=== PATIENT | male | born 1955 | race African-American/Black ===

== ENCOUNTER 2016-08-15 06:52 | Emergency (ER) | payer OTHER ==
[2016-08-15] MEDS ORDERED: ACETAMINOPHEN 325 MG TABLET PO ONE (07:44)
--- NOTE | 2016-08-15 07:44 | ER Document Report ---
ED General - General Chief Complaint: Blood Pressure Problem Stated Complaint: BLOOD PRESSURE PROBLEMS Time Seen by Provider: 08/15/16 07:19 Mode of Arrival: Ambulatory Information source: Patient Notes: 61-year-old male presents with complaints of headache of 2 day duration. Patient notes is a very mild headache but he is very anxious about his blood pressure. Patient notes his blood pressure has been 140s over 90s. Denies any fevers or chills denies any neurological symptoms denies any trauma Patient has not taken any medications for his headache TRAVEL OUTSIDE OF THE [place] IN LAST 30 DAYS: No - HPI Onset: Other - 2 day duration Onset/Duration: Persistent Quality of pain: Achy Severity: Mild Pain Level: 1 Associated symptoms: Headache Exacerbated by: Denies Relieved by: Denies Similar symptoms previously: No Recently seen / treated by doctor: No - Related Data Allergies/Adverse Reactions: No Known Allergies Allergy (Verified 08/15/16 07:44) Past Medical History - Social History Smoking Status: Never Smoker Cigarette use (# per day): No Chew tobacco use (# tins/day): No Smoking Education Provided: No Family History: Reviewed & Not Pertinent Patient has suicidal ideation: No Patient has homicidal ideation: No - Past Medical History Cardiac Medical History: Denies: Hx Coronary Artery Disease, Hx Heart Attack, Hx Hypertension Pulmonary Medical History: Denies: Hx Asthma, Hx Bronchitis, Hx COPD, Hx Pneumonia, Hx Tuberculosis Neurological Medical History: Denies: Hx Cerebrovascular Accident, Hx Seizures Renal/ Medical History: Denies: Hx Peritoneal Dialysis Musculoskeltal Medical History: Reports Hx Arthritis Past Surgical History: Reports: Hx Orthopedic Surgery - right leg. Denies: Hx Pacemaker - Immunizations Hx Diphtheria, Pertussis, Tetanus Vaccination: Yes Review of Systems - Review of Systems Notes: PHYSICAL EXAMINATION: GENERAL: Well-appearing, well-nourished and in no acute distress. HEAD: Atraumatic, normocephalic. EYES: Pupils equal round and reactive to light, extraocular movements intact, sclera anicteric, conjunctiva are normal. ENT: Nares patent, oropharynx clear without exudates. Moist mucous membranes. NECK: Normal range of motion, supple without lymphadenopathy LUNGS: Breath sounds clear to auscultation bilaterally and equal. No wheezes rales or rhonchi. HEART: Regular rate and rhythm without murmurs ABDOMEN: Soft, nontender, nondistended abdomen. No guarding, no rebound. No masses appreciated. Musculoskeletal: Normal range of motion, no pitting or edema. No cyanosis. NEUROLOGICAL: Cranial nerves grossly intact. Normal speech, normal gait. Normal sensory, motor exams PSYCH: Normal mood, normal affect. SKIN: Warm, Dry, normal turgor, no rashes or lesions noted. Physical Exam - Vital signs Vitals: Temp Pulse Resp BP Pulse Ox 97.3 F 71 16 129/91 H 98 08/15/16 07:02 08/15/16 07:02 08/15/16 07:02 08/15/16 07:02 08/15/16 07:02 Course - Re-evaluation Re-evalutation: 08/15/16 09:10 Patient was given Tylenol which resolved his headache CT of the head was negative. No life-threatening issues are noted. I will discharge the patient follow-up with primary care physician regarding his blood pressure issues at this time his blood pressure is stable After performing a Medical Screening Examination, I estimate there is LOW risk for ACUTE GLAUCOMA, TEMPORAL ARTERITIS, MENINGITIS, INCRANIAL HEMORRHAGE, or ISCHEMIC STROKE thus I consider the discharge disposition reasonable. I have reevaluated this patient multiple times and no significant life threatening changes are noted. The patient and I have discussed the diagnosis and risks, and we agree with discharging home with close follow-up with the understanding that symptoms and presentations can change. We also discussed returning to the Emergency Department immediately if new or worsening symptoms occur. We have discussed the symptoms which are most concerning (e.g., changing or worsening symptoms, new numbness or weakness, vomiting, fever) that necessitate immediate return. - Vital Signs Vital signs: Temp Pulse Resp BP Pulse Ox 97.3 F 71 16 129/91 H 98 08/15/16 07:02 08/15/16 07:02 08/15/16 07:02 08/15/16 07:02 08/15/16 07:02 - Diagnostic Test Radiology reviewed: Image reviewed, Reports reviewed - No acute abnormality Discharge - Discharge Clinical Impression: Headache Qualifiers: Headache type: unspecified Headache chronicity pattern: acute headache Intractability: not intractable Qualified Code(s): R51 - Headache Hypertension Qualifiers: Hypertension type: essential hypertension Qualified Code(s): I10 - Essential ( primary) hypertension Condition: Stable Disposition: HOME, SELF-CARE Instructions: Headache ([facility]) Referrals: ROMULO LOZADA MD [Primary Care Provider] - Follow up tomorrow
[2016-08-15] MEDS ORDERED: IBUPROFEN 800 MG TABLET PO ONE (09:23)
[2016-08-15 09:37] VITALS: BP 116/85
== END 2016-08-15 09:34 | disposition home or self-care (01) ==
LOC: ER 06:52
DX: R51 Headache (principal); I10 Essential (primary) hypertension
CPT/HCPCS: 70450; 99284

== ENCOUNTER 2016-11-04 23:42 | Inpatient (IN) | payer OTHER ==
[2016-11-05] MEDS ORDERED: ONDANSETRON 4 MG TAB.RAPDIS PO ONE (00:52)
[2016-11-05] MEDS ORDERED: OXYCODONE-ACETAMINOPHEN 5-325 MG TABLET PO ONE (00:52)
--- NOTE | 2016-11-05 00:55 | ER Document Report ---
ED Medical Screen (RME) - General Chief Complaint: Abdominal Pain Stated Complaint: ABDOMINAL/BACK PAIN Time Seen by Provider: 11/05/16 00:49 Notes: 61-year-old male, chief complaint of abdominal pain in both upper and lower abdomen, started yesterday getting worse, reports nausea now. He denies flank pain, vomiting, fever; had normal bowel movement yesterday. He denies any surgeries or daily medications. He reports recent colonoscopy with diverticulosis but no other concerning findings. TRAVEL OUTSIDE OF THE [place] IN LAST 30 DAYS: No - Related Data Allergies/Adverse Reactions: No Known Allergies Allergy (Verified 11/05/16 00:18) Past Medical History - Past Medical History Cardiac Medical History: Denies: Hx Coronary Artery Disease, Hx Heart Attack, Hx Hypertension Pulmonary Medical History: Denies: Hx Asthma, Hx Bronchitis, Hx COPD, Hx Pneumonia, Hx Tuberculosis Neurological Medical History: Denies: Hx Cerebrovascular Accident, Hx Seizures Renal/ Medical History: Denies: Hx Peritoneal Dialysis Musculoskeltal Medical History: Reports Hx Arthritis Past Surgical History: Reports: Hx Orthopedic Surgery - right leg. Denies: Hx Pacemaker - Immunizations Hx Diphtheria, Pertussis, Tetanus Vaccination: Yes Physical Exam - Vital signs Vitals: Temp Pulse Resp BP Pulse Ox 98.6 F 93 16 170/106 H 100 11/05/16 00:20 11/05/16 00:20 11/05/16 00:20 11/05/16 00:20 11/05/16 00:20 - General General appearance: Other - appears to be uncomfortable and has trouble holding still - Abdominal Tenderness: Tender - tender in both upper and lower abdomen with some wincing; limited by sitting Course - Re-evaluation Re-evalutation: patient requests pain medication in triage along with the nausea medication - Vital Signs Vital signs: Temp Pulse Resp BP Pulse Ox 98.6 F 93 16 170/106 H 100 11/05/16 00:20 11/05/16 00:20 11/05/16 00:20 11/05/16 00:20 11/05/16 00:20
[2016-11-05] MEDS ORDERED: MORPHINE SULFATE 10 MG/ML INJ IV ONE (02:15)
[2016-11-05 02:24] LABS: AMORPHOUS SEDIMENT,URINE TRACE /HPF; APPEARANCE,URINE CLOUDY; BILIRUBIN,URINE NEGATIVE (NEGATIVE); GLUCOSE, URINE NEGATIVE (NEGATIVE); KETONES,URINE NEGATIVE (NEGATIVE); LEUKOCYTE ESTERASE,URINE NEGATIVE (NEGATIVE); NITRITE,URINE NEGATIVE (NEGATIVE); PROTEIN,URINE NEGATIVE (NEGATIVE); URINE SPECIFIC GRAVITY 1.019
[2016-11-05] MEDS ORDERED: NORMAL SALINE 1000 ML 1,000 ML IV ONE (02:41)
[2016-11-05 02:52] LABS: ABSOLUTE BASOPHILS # (AUTO) 0.1 10^3/uL (0.0-0.2); ABSOLUTE EOSINOPHILS # (AUTO) 0.2 10^3/uL (0.0-0.6); ABSOLUTE LYMPHOCYTES (AUTO) 2.6 10^3/uL (0.5-4.7); ABSOLUTE NEUT (AUTO) 5.1 10^3/uL (1.7-8.2); BASOPHILS % (AUTO) 1.4 % (0-2); EOSINOPHILS % (AUTO) 2.4 % (0-6); HEMATOCRIT 42.6 % (37.9-51.0); HEMOGLOBIN 14.9 g/dL (13.5-17.0); HGB HCT DIFFERENCE 2.1; LYMPHOCYTES % (AUTO) 28.4 % (13-45); MEAN CORPUSCULAR HEMOGLOBIN 29.7 pg (27.0-33.4); MEAN CORPUSCULAR HGB CONC 34.9 g/dL (32.0-36.0); MEAN CORPUSCULAR VOLUME 85 fl (80-97); MONOCYTES % (AUTO) 10.7 % (3-13); RED BLOOD COUNT 5.01 10^6/uL (4.35-5.55); RED CELL DISTRIBUTION WIDTH 14.7 % (11.5-14.0); SEGMENTED NEUTROPHILS % (AUTO) 57.1 % (42-78)
--- NOTE | 2016-11-05 03:44 | RADIOLOGY REPORT (SQ) ---
EXAM DESCRIPTION: ACUTE ABDOMEN SERIES COMPLETED DATE/TIME: 11/05/2016 3:09 am REASON FOR STUDY: abd pain, nausea COMPARISON: Chest x-ray 04/29/2015. NUMBER OF VIEWS: Three views. TECHNIQUE: Frontal chest, supine abdomen and upright/decubitus abdomen radiographic images acquired. LIMITATIONS: None. FINDINGS: CHEST: No consolidation, pleural effusion or pneumothorax. FREE AIR: None. BOWEL GAS PATTERN: Nonobstructive pattern. No dilated loops or air fluid levels. CALCIFICATIONS: No suspicious calcifications. HARDWARE: None in the abdomen. SOFT TISSUES: No gross mass or suggestion of organomegaly. BONES: Degenerative changes in the spine. IMPRESSION: Nonobstructive bowel gas pattern. No acute radiographic finding in the chest. TECHNICAL DOCUMENTATION: JOB ID: [id number] 2010 [employer]- All Rights Reserved
[2016-11-05 04:09] LABS: ALANINE AMINOTRANSFERASE 26 U/L (21-72); ALBUMIN 3.6 g/dL (3.5-5.0); ALKALINE PHOSPHATASE 104 U/L (38-126); ANION GAP 9 (5-19); ASPARTATE AMINO TRANSFERASE 16 U/L (17-59); BILIRUBIN,DIRECT 0.2 mg/dL (0.0-0.4); BILIRUBIN,TOTAL 0.4 mg/dL (0.2-1.3); BLOOD UREA NITROGEN 10 mg/dL (7-20); CALCIUM 8.8 mg/dL (8.4-10.2); CARBON DIOXIDE 26 mmol/L (22-30); CHLORIDE 107 mmol/L (98-107); CREATININE RESULT 0.85 mg/dL (0.52-1.25); GLUCOSE 139 mg/dL (75-110); SODIUM 142.1 mmol/L (137-145); TOTAL PROTEIN 6.6 g/dL (6.3-8.2)
[2016-11-05 04:32] LABS: LIPASE 7009.9 U/L (23-300)
--- NOTE | 2016-11-05 04:48 | ER Document Report ---
ED GI/ - General Chief Complaint: Abdominal Pain Stated Complaint: ABDOMINAL/BACK PAIN Time Seen by Provider: 11/05/16 00:49 Notes: Patient is a 61-year-old male, chief complaint of abdominal pain in both upper and mid abdomen, started yesterday getting worse, reports nausea now. He denies flank pain, vomiting, fever; had normal bowel movement yesterday. He denies any surgeries or daily medications. He reports recent colonoscopy with diverticulosis but no other concerning findings. He smokes, denies COPD. PMH of Hepatitis C which as treated and his viral load is undetectable. TRAVEL OUTSIDE OF THE [place] IN LAST 30 DAYS: No - Related Data Allergies/Adverse Reactions: No Known Allergies Allergy (Verified 11/05/16 00:18) Home Medications: Current Home Medications No Home Medications 11/05/16 [History] Past Medical History - General Information source: Patient - Social History Smoking Status: Current Every Day Smoker Frequency of alcohol use: Social Drug Abuse: None Lives with: Family Family History: Reviewed & Not Pertinent - Past Medical History Cardiac Medical History: Denies: Hx Coronary Artery Disease, Hx Heart Attack, Hx Hypertension Pulmonary Medical History: Denies: Hx Asthma, Hx Bronchitis, Hx COPD, Hx Pneumonia, Hx Tuberculosis Neurological Medical History: Denies: Hx Cerebrovascular Accident, Hx Seizures Renal/ Medical History: Denies: Hx Peritoneal Dialysis Musculoskeltal Medical History: Reports Hx Arthritis Past Surgical History: Reports: Hx Orthopedic Surgery - right leg. Denies: Hx Pacemaker - Immunizations Hx Diphtheria, Pertussis, Tetanus Vaccination: Yes Review of Systems - Review of Systems Constitutional: No symptoms reported EENT: No symptoms reported Cardiovascular: No symptoms reported Respiratory: No symptoms reported Gastrointestinal: See HPI Genitourinary: No symptoms reported Male Genitourinary: No symptoms reported Musculoskeletal: No symptoms reported Skin: No symptoms reported Hematologic/Lymphatic: No symptoms reported Neurological/Psychological: No symptoms reported Physical Exam - Vital signs Vitals: Temp Pulse Resp BP Pulse Ox 98.6 F 93 16 170/106 H 100 11/05/16 00:20 11/05/16 00:20 11/05/16 00:20 11/05/16 00:20 11/05/16 00:20 Interpretation: Normal - General General appearance: Appears well, Alert - HEENT Head: Normocephalic, Atraumatic Eyes: Normal Pupils: PERRL - Respiratory Respiratory status: No respiratory distress Chest status: Nontender Breath sounds: Normal Chest palpation: Normal - Cardiovascular Rhythm: Regular Heart sounds: Normal auscultation Murmur: No - Abdominal Inspection: Other - On inspection with patient lying down patient appears to have a umbilical hernia Distension: No distension Bowel sounds: Normal Tenderness: Tender - Patient tender in the epigastric area and also in the area of the umbilical hernia. Umbilical hernia is still soft, I was able to reduce without any difficulty Organomegaly: No organomegaly - Back Back: Normal, Nontender. No: Tender, CVA tenderness - Extremities General upper extremity: Normal inspection, Nontender, Normal ROM, Normal strength General lower extremity: Normal inspection, Nontender, Normal ROM, Normal strength - Neurological Neuro grossly intact: Yes Cognition: Normal Orientation: AAOx4 [employer] Coma Scale Eye Opening: Spontaneous Alexander Coma Scale Verbal: Oriented Alexander Coma Scale Motor: Obeys Commands Alexander Coma Scale Total: 15 Speech: Normal Motor strength normal: LUE, RUE, LLE, RLE Sensory: Normal - Psychological Associated symptoms: Normal affect, Normal mood - Skin Skin Temperature: Warm Skin Moisture: Dry Skin Color: Normal Course - Re-evaluation Re-evalutation: Despite reducing the umbilical hernia easily on exam patient appears to still be in some pain. The area is not hard. It comes back out but it is repeatedly easy to reduce. He still has some mid to upper abdominal pain on exam. CBC, chemistry unremarkable, lactic acid unremarkable, however his lipase is significantly elevated. No obstructive findings. Patient admits that he drinks alcohol on a regular basis including occasionally heavily. Likely alcoholic pancreatitis with no evidence of obstructive findings on chemistry. Patient does feel better after pain medication but still has some pain. IV fluids given. Discussed with Dr. Clarke. Because of lack of obstructive findings on chemistry and a reducible hernia she does not recommend any imaging including ultrasound or CAT scan. Recommends admission from this point. Discussed with Dr. Mao, patient's primary provider, patient will be admitted to telemetry. Patient states agreement with this plan. - Vital Signs Vital signs: Temp Pulse Resp BP Pulse Ox 98.6 F 93 16 170/106 H 100 11/05/16 00:20 11/05/16 00:20 11/05/16 00:20 11/05/16 00:20 11/05/16 00:20 - Laboratory Result Diagrams: 11/05/16 02:41 11/05/16 03:38 Laboratory results interpreted by me: 11/05/16 11/05/16 11/05/16 02:04 02:41 03:38 RDW 14.7 H Plt Count 149 L Glucose 139 H AST 16 L Lipase 7009.9 H Urine Urobilinogen 4.0 H Discharge - Discharge Clinical Impression: Abdominal pain Qualifiers: Abdominal location: generalized Qualified Code(s): R10.84 - Generalized abdominal pain Pancreatitis Qualifiers: Chronicity: acute Pancreatitis type: unspecified pancreatitis type Acute pancreatitis complication: unspecified Qualified Code(s): K85.90 - Acute pancreatitis without necrosis or infection, unspecified Umbilical hernia Qualifiers: Obstruction and gangrene presence: without obstruction or gangrene Qualified Code(s): K42.9 - Umbilical hernia without obstruction or gangrene Disposition: ADMITTED INPATIENT Admitting Provider: [facility] Admitted: Telemetry
[2016-11-05] MEDS ORDERED: GLUCAGON,HUMAN RECOMB 1 MG INJ SUBCUT PRN (05:44)
[2016-11-05] MEDS ORDERED: DEXTROSE 50%-WATER 25 GM/50 ML DISP.SYRIN IV PRN ×2 (05:44)
[2016-11-05] MEDS ORDERED: POTASSI CL 10 MEQ/D5-1/2NS 1L 1,000 ML IV PRN (05:44)
[2016-11-05] MEDS ORDERED: DEXTROSE 40% GEL 15 GM TUBE PO PRN ×2 (05:44)
[2016-11-05 06:57] LABS: PROTHROMBIN TIME 13.8 SEC (11.4-15.4)
[2016-11-05 06:58] LABS: PARTIAL THROMBOPLASTIN TIME 36.9 SEC (23.5-35.8)
[2016-11-05 07:03] LABS: URINE BARBITURATES SCREEN NEGATIVE; URINE METHADONE SCREEN NEGATIVE; URINE OPIATES LOW NEGATIVE; URINE PHENCYCLIDINE SCREEN NEGATIVE
[2016-11-05 07:10] LABS: MAGNESIUM 1.8 mg/dL (1.6-2.3); PHOSPHORUS 4.2 mg/dL (2.5-4.5)
[2016-11-05 07:17] LABS: LIPASE 3695.2 U/L (23-300)
--- NOTE | 2016-11-05 07:24 | RADIOLOGY REPORT (SQ) ---
EXAM DESCRIPTION: U/S ABDOMEN COMPLETE W/O DOP COMPLETED DATE/TIME: 11/05/2016 7:01 am REASON FOR STUDY: acute pancreatitis , elevated lipase level. COMPARISON: None. TECHNIQUE: Grayscale images acquired of the abdomen and recorded on PACS. Additional selected color Doppler and spectral images recorded. LIMITATIONS: Study limited due to acoustical interference from fat or from air in the bowel. FINDINGS: PANCREAS: Mostly obscured by overlying bowel gas. The visualized pancreas in the region o f the proximal body is unremarkable. LIVER: The liver measures 14.5 cm. Echotexture is coarse with increased echogenicity most consistent with fatty infiltration. LIVER VASCULATURE: Normal directional flow of the main portal vein. GALLBLADDER: No stones. Normal wall thickness. No pericholecystic fluid. ULTRASOUND-DETECTED MCKINNON'S SIGN: Negative. INTRAHEPATIC DUCTS AND COMMON DUCT: Common hepatic duct measures 9 mm. CBD measures 6 mm. INFERIOR VENA CAVA: Patent. AORTA: No aneurysm in the visualized segments. RIGHT KIDNEY: Measures 12.6 cm. Normal echogenicity. No hydronephrosis. LEFT KIDNEY: Measures 15 cm. Normal echogenicity. No hydronephrosis. SPLEEN:Measures 10 cm. PERITONEAL AND PLEURAL SPACES: No ascites or effusions. IMPRESSION: Fatty infiltration of the liver. Mildly dilated common hepatic duct. No cholelithiasis. Suboptimal visualization of the pancreas. Please note that CT and MRI/ MRCP are more sensitive to ev aluate for peripancreatic inflammatory changes or fluid collections. TECHNICAL DOCUMENTATION: JOB ID: [id number] [place]-[id number] 2010 [employer]- All Rights Reserved
[2016-11-05 07:25] LABS: TROPONIN I < 0.012 ng/mL
[2016-11-05 07:41] LABS: THYROID STIMULATING HORMONE 2.53 uIU/mL (0.47-4.68)
[2016-11-05 07:48] LABS: CREATINE KINASE MB 0.94 ng/mL (<4.55)
[2016-11-05] MEDS: ENOXAPARIN SODIUM INJ 40 MG/0.4 ML DISP.SYRIN SUBCUT SCH (09:45)
[2016-11-05] MEDS: HYDROMORPHONE HCL INJ/PF 2 MG/ML AMPULE IV PRN (09:47)
[2016-11-05 11:22] LABS: CHOLESTEROL 150.49 mg/dL (0-200); Direct HDL 48 mg/dL (>40); TRIGLYCERIDES 72 mg/dL (<150)
[2016-11-05 11:33] LABS: DIRECT LDL 85 mg/dL (<100)
--- NOTE | 2016-11-05 11:59 | RADIOLOGY REPORT (SQ) ---
EXAM DESCRIPTION: CT ABD/PELVIS WITH IV ONLY COMPLETED DATE/TIME: 11/05/2016 11:45 am REASON FOR STUDY: abdominal pain COMPARISON: None. TECHNIQUE: CT scan of the abdomen and pelvis performed using helical scanning technique with dynamic intravenous contrast injection. No oral contrast. Images reviewed with lung, soft tissue, and bone windows. Reconstructed coronal and sagittal MPR images reviewed. Delayed images for evaluation of the urinary system also acquired. All images stored on PACS. All CT scanners at this facility use dose modulation, iterative reconstruction, and/or weight based d osing when appropriate to reduce radiation dose to as low as reasonably achievable (ALARA). [facility]: Dose Right [facility]: CareDose [facility]: Dose Right [facility]: Teradose 4D [facility]: Akella CONTRAST TYPE AND DOSE: contrast/concentration: Isovue 370.00 mg/ml; Total Contrast Delivered: 100.0 ml; Total Saline Delivered: 72.0 ml RENAL FUNCTION: BUN 10 creatinine 0.85. RADIATION DOSE: Up-to-date CT equipment and radiation dose reduction techniques were employed. CTDIv ol: 14.7 - 18.4 mGy. DLP: 1815 mGy-cm.. LIMITATIONS: None. FINDINGS: LOWER CHEST: No significant findings. No nodules or infiltrates. LIVER: Normal size. No masses. No dilated ducts. SPLEEN: Normal size. No focal lesions. PANCREAS: No masses. No significant calcifications. No adjacent inflammation or peripancreatic fluid collections. Pancreatic duct not dilated. GALLBLADDER: No identified stones by CT criteria. No inflammatory changes to suggest cholecystitis. ADRENAL GLANDS: No significant masses or asymmetry. RIGHT KIDNEY AND URETER: Cortical cyst in the anterior cortex. 1.8 cm cortical mass in the lateral l ower pole, not clearly cystic. Hounsfield units 60-70. No significant calcifications. No hydrone phrosis or hydroureter. LEFT KIDNEY AND URETER: No solid masses. No significant calcifications. No hydronephrosis or hydr oureter. AORTA AND VESSELS: No aneurysm. No dissection. Renal arteries, SMA, celiac without stenosis. RETROPERITONEUM: No retroperitoneal adenopathy, hemorrhage or masses. BOWEL AND PERITONEAL CAVITY: No masses or inflammatory changes. No free fluid or peritoneal masses. APPENDIX: Normal. PELVIS: No mass. No free fluid. Normal bladder. Left inguinal hernia containing fat. ABDOMINAL WALL: No masses. No hernias. BONES: No significant or acute findings. OTHER: No other significant finding. IMPRESSION: 1. LESION IN THE LOWER POLE OF THE RIGHT KIDNEY WHICH IS NOT CLEARLY A SIMPLE CORTICAL CYST. RECOMME ND FOLLOW-UP ULTRASOUND OF THE KIDNEYS. IF ULTRASOUND IS NONSPECIFIC, THEN MRI MAY BE INDICATED. 2. NO OTHER SIGNIFICANT OR ACUTE FINDING IN THE ABDOMEN OR PELVIS ON CT SCAN WITH IV CONTRAST. TECHNICAL DOCUMENTATION: JOB ID: [id number] Quality ID # [id number]: Final reports with documentation of one or more dose reduction techniques (e.g., Au tomated exposure control, adjustment of the mA and/or kV according to patient size, use of iterative reconstruction technique) 2010 [employer]- All Rights Reserved
[2016-11-05 12:56] LABS: CREATINE KINASE MB 0.96 ng/mL (<4.55)
[2016-11-05 12:57] LABS: TROPONIN I < 0.012 ng/mL
--- NOTE | 2016-11-05 14:54 | PDOC H&P ---
History of Present Illness Admission Date/PCP: 11/05/16 05:44 ROMULO LOZADA MD History of Present Illness: ALBERT MONGE is a 61 year old male, He came to the emergency room earlier this morning for evaluation of abdominal pain. In the emergency room he was evaluated he was found to have severely elevated serum lipase over 7000 this suggests he has acute pancreatitis. The pain is in the upper abdomen, it radiated to the back. I ordered a CT scan of the abdomen and pelvis with IV contrast, CT scan did not show any acute pathology but there was incidental finding of a 1.8 cm lesion in the right kidney cortex is not well characterized as a cyst further imaging studies recommended. The ultrasound of the goal bladder was negative for gallstones,He does not habitually consume alcoholic beverages Past Medical History Neurological Medical History: Denies: Seizures Musculoskeltal Medical History: Reports: Arthritis Past Surgical History Past Surgical History: Reports: Orthopedic Surgery - right leg Social History Lives with: Family Smoking Status: Current Every Day Smoker Number of Years Smokin Last Time Smoked: 11/04/16 smokes 3 cigarettes daily Frequency of Alcohol Use: Social Hx Recreational Drug Use: No Drugs: None Hx Prescription Drug Abuse: No - Advance Directive Resuscitation Status: Full Code Family History Family History: Reviewed & Not Pertinent Parental Family History Reviewed: Yes Children Family History Reviewed: Yes Sibling(s) Family History Reviewed.: Yes Medication/Allergy Home Medications: No Home Medications 11/05/16 Allergies/Adverse Reactions: No Known Allergies Allergy (Verified 11/05/16 00:18) Review of Systems Constitutional: ABSENT: chills, fever(s), headache(s), weight gain, weight loss Eyes: ABSENT: visual disturbances Ears: ABSENT: hearing changes Cardiovascular: ABSENT: chest pain, dyspnea on exertion, edema, orthropnea, palpitations Respiratory: ABSENT: cough, hemoptysis Gastrointestinal: PRESENT: abdominal pain Genitourinary: ABSENT: dysuria, hematuria Musculoskeletal: ABSENT: joint swelling Integumentary: ABSENT: rash, wounds Neurological: ABSENT: abnormal gait, abnormal speech, confusion, dizziness, focal weakness, syncope Psychiatric: ABSENT: anxiety, depression, homidical ideation, suicidal ideation Endocrine: ABSENT: cold intolerance, heat intolerance, menstrual abnormalities, polydipsia, polyuria Hematologic/Lymphatic: ABSENT: easy bleeding, easy bruising, lymphadenopathy Physical Exam Vital Signs: Temp Pulse Resp BP Pulse Ox 97.5 F 66 14 122/81 95 11/05/16 12:05 11/05/16 12:05 11/05/16 12:05 11/05/16 12:05 11/05/16 12:05 Intake & Output 11/04/16 11/05/16 11/06/16 06:59 06:59 06:59 Weight 104.3 kg 104.2 kg General appearance: PRESENT: no acute distress, well-developed, well-nourished Head exam: PRESENT: atraumatic, normocephalic Eye exam: PRESENT: conjunctiva pink, EOMI, PERRLA. ABSENT: scleral icterus Ear exam: PRESENT: normal external ear exam Mouth exam: PRESENT: moist, tongue midline Neck exam: PRESENT: full ROM. ABSENT: carotid bruit, JVD, lymphadenopathy, thyromegaly Respiratory exam: PRESENT: clear to auscultation gloria Cardiovascular exam: PRESENT: RRR, +S1, +S2. ABSENT: diastolic murmur, rubs, systolic murmur Pulses: PRESENT: normal dorsalis pedis pul, +2 pedal pulses bilateral Vascular exam: PRESENT: normal capillary refill GI/Abdominal exam: PRESENT: tenderness Rectal exam: PRESENT: deferred Neurological exam: PRESENT: alert, awake, oriented to person, oriented to place , oriented to time, oriented to situation, CN II-XII grossly intact Psychiatric exam: PRESENT: appropriate affect, normal mood Skin exam: PRESENT: dry, intact, warm Results Laboratory Results: 11/05/16 11/05/16 11/05/16 06:22 06:22 06:22 Phosphorus 4.2 Magnesium 1.8 Ammonia 19.5 Triglycerides Cholesterol LDL Cholesterol Direct VLDL Cholesterol HDL Cholesterol Amylase 546 H Lipase 3695.2 H TSH 2.53 Free T4 0.85 11/05/16 06:22 Phosphorus Magnesium Ammonia Triglycerides 72 Cholesterol 150.49 LDL Cholesterol Direct 85 VLDL Cholesterol 14.0 HDL Cholesterol 48 Amylase Lipase TSH Free T4 11/05/16 11/05/16 11/05/16 06:22 06:22 12:10 Creatine Kinase 194 H 174 H CK-MB (CK-2) 0.94 Troponin I < 0.012 NT-Pro-B Natriuret Pep 81 11/05/16 12:10 Creatine Kinase CK-MB (CK-2) 0.96 Troponin I < 0.012 NT-Pro-B Natriuret Pep Impressions: Abdomen Ultrasound 11/05/16 00:00 IMPRESSION: Fatty infiltration of the liver. Mildly dilated common hepatic duct. No cholelithiasis. Suboptimal visualization of the pancreas. Please note that CT and MRI/ MRCP are more sensitive to evaluate for peripancreatic inflammatory changes or fluid collections. Abdomen/Pelvis CT 11/05/16 00:00 IMPRESSION: 1. LESION IN THE LOWER POLE OF THE RIGHT KIDNEY WHICH IS NOT CLEARLY A SIMPLE CORTICAL CYST. RECOMMEND FOLLOW-UP ULTRASOUND OF THE KIDNEYS. IF ULTRASOUND IS NONSPECIFIC, THEN MRI MAY BE INDICATED. 2. NO OTHER SIGNIFICANT OR ACUTE FINDING IN THE ABDOMEN OR PELVIS ON CT SCAN WITH IV CONTRAST. Acute Abdomen Series 11/05/16 00:52 IMPRESSION: Nonobstructive bowel gas pattern. No acute radiographic finding in the chest. Assessment & Plan - Diagnosis (1) Acute pancreatitis Qualifiers: Pancreatitis type: unspecified pancreatitis type Acute pancreatitis complication: no infection or necrosis Qualified Code(s): K85.90 - Acute pancreatitis without necrosis or infection, unspecified Is this a current diagnosis for this admission?: YesPlan: Patient is admitted for the management of acute pancreatitis, He be kept n.p.o. , the ultrasound of the gallbladder was negative for gallstones, he does not drink alcohol habitually, he is a social drinker. He is not on any medication known to cause acute pancreatitis, the serum triglyceride level will be measured
[2016-11-05] MEDS ORDERED: LORAZEPAM INJ 2 MG/1 ML VIAL IV PRN (16:45)
[2016-11-05] MEDS: DEXTROSE 5%-NORMAL SALINE 1,000 ML IV PRN (18:18)
[2016-11-05 19:31] LABS: CREATINE KINASE MB 0.78 ng/mL (<4.55)
[2016-11-05 19:44] LABS: TROPONIN I < 0.012 ng/mL
--- NOTE | 2016-11-06 02:29 | RADIOLOGY REPORT (SQ) ---
EXAM DESCRIPTION: MRI ABDOMEN COMBO COMPLETED DATE/TIME: 11/05/2016 6:10 pm REASON FOR STUDY: mri rt kidney COMPARISON: None. TECHNIQUE: Multiplanar multisequence imaging performed without and with contrast including sagittal, axial and coronal T2, axial T1, axial gradient fat sat T1, axial, sagittal and coronal fat sat T1 po st contrast. CONTRAST TYPE AND DOSE: 20 mL ProHance. The RENAL FUNCTION: GFR > 60. LIMITATIONS: Artifact includes motion artifact. FINDINGS: LIVER: Normal size. No masses. No dilated ducts. CBD normal. SPLEEN: Normal size. No focal lesions. PANCREAS: No masses. No adjacent inflammation or peripancreatic fluid collections. Pancreatic duct no t dilated. GALLBLADDER: No masses. No stones. No gallbladder wall thickening or pericholecystic fluid. ADRENAL GLANDS: No significant masses or asymmetry. RIGHT KIDNEY AND URETER: Indeterminate 1.9 cm lesion with low - heterogeneous T2 signal and enhanceme nt pattern matching renal cortices on limited imaging due to motion artifact. Additional 1.4 cm like ly benign cyst of the upper pole. LEFT KIDNEY AND URETER: Indeterminate 1.9 cm lesion AORTA AND VESSELS: No aneurysm. No dissection. Renal arteries, SMA, celiac without stenosis. RETROPERITONEUM: No retroperitoneal adenopathy, hemorrhage or masses. BOWEL: No visualized masses. No inflammation. No significant dilatation. ABDOMINAL WALL AND PERITONEUM: No hernias. No free fluid. BONES: No acute or significant findings. OTHER: No other significant finding. IMPRESSION: Indeterminate 1.9 cm lesion of the right kidney ; cannot exclude neoplasm. Further caitie acterization with dedicated dynamic, thin collimation (3mm thick) contrast CT of the kidneys recommen ded. TECHNICAL DOCUMENTATION: JOB ID: [id number] [employer]- All Rights Reserved
--- NOTE | 2016-11-06 04:45 | EKG REPORT ---
SEVERITY:- ABNORMAL ECG - ATRIAL FLUTTER, A-RATE 272 VENTRICULAR PREMATURE COMPLEX : Confirmed by: Gabriel Razo MD 06-Nov-2016 04:08:03
[2016-11-06 05:13] LABS: ABSOLUTE BASOPHILS # (AUTO) 0.1 10^3/uL (0.0-0.2); ABSOLUTE EOSINOPHILS # (AUTO) 0.1 10^3/uL (0.0-0.6); ABSOLUTE LYMPHOCYTES (AUTO) 2.3 10^3/uL (0.5-4.7); ABSOLUTE MONOCYTES (AUTO) 0.6 10^3/uL (0.1-1.4); BASOPHILS % (AUTO) 0.9 % (0-2); EOSINOPHILS % (AUTO) 2.2 % (0-6); HEMOGLOBIN 14.6 g/dL (13.5-17.0); HGB HCT DIFFERENCE 2.8; LYMPHOCYTES % (AUTO) 37.6 % (13-45); MEAN CORPUSCULAR HEMOGLOBIN 30.1 pg (27.0-33.4); MEAN CORPUSCULAR HGB CONC 35.7 g/dL (32.0-36.0); MEAN CORPUSCULAR VOLUME 84 fl (80-97); MONOCYTES % (AUTO) 9.3 % (3-13); RED BLOOD COUNT 4.87 10^6/uL (4.35-5.55); RED CELL DISTRIBUTION WIDTH 14.8 % (11.5-14.0); WHITE BLOOD COUNT 6.1 10^3/uL (4.0-10.5)
[2016-11-06 05:36] LABS: ALANINE AMINOTRANSFERASE 26 U/L (21-72); ALBUMIN 3.7 g/dL (3.5-5.0); ALKALINE PHOSPHATASE 99 U/L (38-126); ANION GAP 9 (5-19); ASPARTATE AMINO TRANSFERASE 17 U/L (17-59); BILIRUBIN,DIRECT 0.3 mg/dL (0.0-0.4); BILIRUBIN,TOTAL 0.7 mg/dL (0.2-1.3); BLOOD UREA NITROGEN 8 mg/dL (7-20); CALCIUM 9.1 mg/dL (8.4-10.2); CARBON DIOXIDE 25 mmol/L (22-30); CHLORIDE 105 mmol/L (98-107); CHOLESTEROL 161.99 mg/dL (0-200); CREATININE RESULT 0.82 mg/dL (0.52-1.25); Direct HDL 50 mg/dL (>40); GLUCOSE 95 mg/dL (75-110); POTASSIUM 4.3 mmol/L (3.6-5.0); SODIUM 139.4 mmol/L (137-145); TOTAL PROTEIN 6.8 g/dL (6.3-8.2); TRIGLYCERIDES 58 mg/dL (<150)
[2016-11-06 05:47] LABS: DIRECT LDL 94 mg/dL (<100)
[2016-11-06] MEDS: DEXTROSE 5%-NORMAL SALINE 1,000 ML IV PRN ×2 (07:42→18:18)
[2016-11-06] MEDS: ENOXAPARIN SODIUM INJ 40 MG/0.4 ML DISP.SYRIN SUBCUT SCH (09:40)
--- NOTE | 2016-11-06 09:45 | EKG REPORT ---
SEVERITY:- ABNORMAL ECG - ATRIAL FLUTTER, A-RATE 277 NONSPECIFIC INTRAVENTRICULAR CONDUCTION DELAY PROBABLE LEFT VENTRICULAR HYPERTROPHY : Confirmed by: Shannon Crocker 06-Nov-2016 09:45:19
[2016-11-06] MEDS: HYDROMORPHONE HCL INJ/PF 2 MG/ML AMPULE IV PRN (09:48)
--- NOTE | 2016-11-06 17:46 | XCELERA REPORT ---
[address] [address] Transthoracic Echocardiogram Report Name: ALBERT MONGE Age: 61 yrs Gender: Male : 1955 Patient Status: Inpatient Patient Location: 5\S\534\S\A Study Date: 11/06/2016 01:36 PM Height: 76 in Weight: 231 lb BSA: 2.4 m2 Procedure: A complete two-dimensional transthoracic echocardiogram was performed (2D, M-mode, spectral and color flow Doppler). The study was technically adequate with some images being suboptimal in quality. Reason For Study: A FIB. Flutter Ordering Physician: SHANNON BARBER Performed By: Tea Salazar Interpretation Summary The Ejection Fraction estimate is 45-50% Left ventricular systolic function is mildly reduced. There is moderate concentric left ventricular hypertrophy. The left ventricle is grossly normal size. There is mild global hypokinesis of the left ventricle. The right ventricular systolic function is normal. The right atrium is normal in size The left atrium is mildly dilated. There is no mitral valve stenosis. There is a mild amount of mitral regurgitation There is no aortic valve stenosis There is a trace amount of aortic regurgitation There is a trace or physiologic amount of tricuspid regurgitation Tricuspid regurgitation jet envelope not well defined to measure RV systolic pressure accurately. The aortic root is not well visualized but is probably normal size. The inferior vena cava appeared normal and decreased > 50% with respiration (RAP 5-10 mmHg) There is no pericardial effusion. MMode/2D Measurements \T\ Calculations RVDd: 2.9 cm LVIDd: 5.4 cm FS: 28.7 % Ao root diam: 4.0 cm IVSd: 1.3 cm LVIDs: 3.8 cm EDV(Teich): 141.0 ml LVPWd: 1.3 cm ESV(Teich): 63.8 ml Ao root area: 12.5 cm2 EF(Teich): 54.8 % Doppler Measurements \T\ Calculations MV E max mary: MV dec slope: Ao V2 max: LV V1 max P.4 cm/sec 80.3 cm/sec 1.9 mmHg MV A max mary: 330.7 cm/sec2 Ao max PG: LV V1 max: 36.2 cm/sec MV dec time: 2.6 mmHg 68.1 cm/sec MV E/A: 1.3 0.14 sec PA V2 max: PI end-d mary: TR max mary: 58.8 cm/sec 122.7 cm/sec 177.6 cm/sec PA max PG: TR max P.4 mmHg 12.6 mmHg Left Ventricle The left ventricle is grossly normal size. There is moderate concentric left ventricular hypertrophy. Left ventricular systolic function is mildly reduced. The Ejection Fraction estimate is 45-50%. LV diastolic function could not be adequately assessed due to atrial fibrilation. There is mild global hypokinesis of the left ventricle. Right Ventricle The right ventricle is grossly normal size. There is normal right ventricular wall thickness. The right ventricular systolic function is normal. Atria The right atrium is normal in size. The left atrium is mildly dilated. Interarterial septum not well visualized and not well dopplered. Cannot comment on ASD/PFO presence. Mitral Valve The mitral valve is grossly normal. There is no mitral valve stenosis. There is a mild amount of mitral regurgitation. Aortic Valve The aortic valve is grossly normal. There is no aortic valve stenosis. There is a trace amount of aortic regurgitation. Tricuspid Valve The tricuspid valve is not well visualized, but is grossly normal. There is no tricuspid stenosis. There is a trace or physiologic amount of tricuspid regurgitation. Tricuspid regurgitation jet envelope not well defined to measure RV systolic pressure accurately. Pulmonic Valve The pulmonic valve is not well visualized. Great Vessels The aortic root is not well visualized but is probably normal size. The inferior vena cava appeared normal and decreased > 50% with respiration (RAP 5-10 mmHg). Effusions There is no pericardial effusion. : SHANNON BARBER > Shannon Barber
--- NOTE | 2016-11-06 18:10 | PDOC CONSULTATION ---
Consultation Consult Date: 11/06/16 Attending physician:: ROMULO LOZADA Consult reason:: Atrial flutter History of Present Illness Admission Date/PCP: 11/05/16 05:44 ROMULO LOZADA MD Patient complains of: Pancreatitis and abdominal pain History of Present Illness: ALBERT MONGE is a 61 year old male, admitted through the emergency room. In the emergency room he was evaluated he was found to have severely elevated serum lipase over 7000 this suggests he has acute pancreatitis. Subsequently while being monitored on the floor he was noted to be in atrial flutter but with controlled ventricular response. His last EKG from April 2015 showed sinus rhythm. He does not feel the irregular heartbeat. He denied any prior history of heart problems. Past Medical History Cardiac Medical History: Denies: Coronary Artery Disease, Myocardial Infarction, Hypertension Pulmonary Medical History: Denies: Asthma, Bronchitis, Chronic Obstructive Pulmonary Disease (COPD), Pneumonia, Tuberculosis Neurological Medical History: Denies: Seizures Musculoskeltal Medical History: Reports: Arthritis Past Surgical History Past Surgical History: Reports: Orthopedic Surgery - right leg Denies: Pacemaker Social History Information Source: Patient Lives with: Family Smoking Status: Current Every Day Smoker Number of Years Smokin Last Time Smoked: 11/04/16 smokes 3 cigarettes daily Frequency of Alcohol Use: Social Hx Recreational Drug Use: No Drugs: None Hx Prescription Drug Abuse: No - Advance Directive Resuscitation Status: Full Code Surrogate healthcare decision maker:: Sister Family History Family History: Reviewed & Not Pertinent Parental Family History Reviewed: Yes Children Family History Reviewed: Yes Sibling(s) Family History Reviewed.: Yes - Negative premature CAD in immediate kins. Medication/Allergy Home Medications: Metoprolol Succinate [Toprol Xl 25 mg Tab.sr] 50 mg PO DAILY #90 tab.sr.24h 11/16 Tramadol HCl/Acetaminophen [Ultracet 37.5 mg/325 mg Tablet] 1 each PO Q8H #90 tablet 11/07/16 Allergies/Adverse Reactions: No Known Allergies Allergy (Verified 11/05/16 00:18) Review of Systems Review of Systems: Please see history of present illness and past medical history as wall. Constitutional: No fever or chills reported. Head : No recent chronic headaches, recent head injury. Eyes: No recent eye pain, diplopia, redness, discharge, acute visual changes. Ears: No recent chronic ear pain, acute hearing loss, ear discharge. Oral cavity: No recent ulcerations, bleeding, oral cavity discomfort. Neck: No recent acute neck pain reported. Hematologic: No recent easy bruising or bleeding or hematologic malignancy reported. Lymphatic: No recent lymphatic malignancy, chronic lymphadenopathy reported yet Cardiovascular system review: See history of present illness. Respiratory system review: No recent chronic cough, hemoptysis, blood clots in the lungs reported. Mild Shortness of breath on exertion Gastrointestinal system review: Positive for recent abdominal pain which caused him to be admitted but denied hematemesis, melena, recent change in bowel habits. Genitourinary system review: No recent acute or chronic hematuria, flank pain, UTI etc. reported. Skin system review: Negative for any recent abnormal bruising, no rash, no pruritus reported. Neurologic: No prior history of strokes, mini strokes, seizure disorder. Psychologic: No history of major psychosis or major depression reported. Musculoskeletal: Minor aches and pains reported. No acute joint swelling reported. Endocrine: No recent polyuria, polydipsia, recent heat or cold intolerance. Physical Exam Vital Signs: Temp Pulse Resp BP Pulse Ox 97.5 F 85 18 133/89 H 97 11/06/16 15:29 11/06/16 15:29 11/06/16 15:29 11/06/16 15:29 11/06/16 15:29 Intake & Output 11/05/16 11/06/16 11/07/16 06:59 06:59 06:59 Intake Total 1436 1100 Output Total 800 Balance 636 1100 Weight 104.3 kg 105 kg Exam: GENERAL: well-nourished and in no acute distress. Alert and oriented x3 HEAD: Atraumatic, normocephalic. EYES: Pupils equal round and reactive to light, extraocular movements intact, sclera anicteric, conjunctiva are normal. ENT: TMs normal, nares patent, oropharynx clear without exudates. Moist mucous membranes. No oral ulcerations or bleeding gums noted NECK: supple without lymphadenopathy. Trachea is central. No cervical or axillary lymphadenopathy noted. Carotids are 2+, JVD WNL LUNGS: Respiration seems nonlabored, no significant accessory muscle action noted. Breath sounds clear to auscultation bilaterally and equal noted. No wheezes rales or rhonchi noted. No significant dullness noted on percussion. CHEST: Palpation of the chest wall shows no significant chest wall tenderness. No other significant abnormalities noted. 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 ABDOMEN: Soft, epigastric and mid abdominal tenderness appreciated, normoactive bowel sounds. No guarding, no rebound. No rigidity noted . No masses appreciated. EXTREMITIES: Pedal pulses are 1-2+, no calf tenderness noted. No clubbing or cyanosis.trace to 1+ pedal edema noted NEUROLOGICAL: Focused neurological exam showed no significant neurologic deficit. Normal speech, no focal weakness appreciated. PSYCH: Normal mood, normal affect. Judgment and insight within normal limits. SKIN: No significant ecchymosis, rash, ulcerations or signs of pruritus noted. MUSCULOSKELETAL EXAM: No significant joint swelling noted. Results Laboratory Results: 11/06/16 04:55 11/06/16 04:55 11/06/16 11/06/16 11/06/16 04:55 04:55 04:55 WBC 6.1 RBC 4.87 Hgb 14.6 Hct 41.0 MCV 84 MCH 30.1 MCHC 35.7 RDW 14.8 H Plt Count 150 Seg Neutrophils % 50.0 Lymphocytes % 37.6 Monocytes % 9.3 Eosinophils % 2.2 Basophils % 0.9 Absolute Neutrophils 3.0 Absolute Lymphocytes 2.3 Absolute Monocytes 0.6 Absolute Eosinophils 0.1 Absolute Basophils 0.1 Sodium 139.4 Potassium 4.3 Chloride 105 Carbon Dioxide 25 Anion Gap 9 BUN 8 Creatinine 0.82 Est GFR ( Amer) > 60 Est GFR (Non-Af Amer) > 60 Glucose 95 Calcium 9.1 Total Bilirubin 0.7 AST 17 ALT 26 Alkaline Phosphatase 99 Total Protein 6.8 Albumin 3.7 Triglycerides 58 Cholesterol 161.99 LDL Cholesterol Direct 94 VLDL Cholesterol 12.0 HDL Cholesterol 50 Lipase 457.5 H 11/05/16 11/05/16 11/05/16 06:22 06:22 12:10 Creatine Kinase 194 H 174 H CK-MB (CK-2) 0.94 Troponin I < 0.012 NT-Pro-B Natriuret Pep 81 11/05/16 11/05/16 11/05/16 12:10 18:35 18:35 Creatine Kinase 168 CK-MB (CK-2) 0.96 0.78 Troponin I < 0.012 < 0.012 NT-Pro-B Natriuret Pep EKG Comments: Atrial flutter with controlled ventricular response. No significant ST segment changes are noted. Impressions: Abdomen MRI 11/05/16 00:00 IMPRESSION: Indeterminate 1.9 cm lesion of the right kidney ; cannot exclude neoplasm. Further characterization with dedicated dynamic, thin collimation ( 3mm thick) contrast CT of the kidneys recommended. Abdomen Ultrasound 11/05/16 00:00 IMPRESSION: Fatty infiltration of the liver. Mildly dilated common hepatic duct. No cholelithiasis. Suboptimal visualization of the pancreas. Please note that CT and MRI/ MRCP are more sensitive to evaluate for peripancreatic inflammatory changes or fluid collections. Abdomen/Pelvis CT 11/05/16 00:00 IMPRESSION: 1. LESION IN THE LOWER POLE OF THE RIGHT KIDNEY WHICH IS NOT CLEARLY A SIMPLE CORTICAL CYST. RECOMMEND FOLLOW-UP ULTRASOUND OF THE KIDNEYS. IF ULTRASOUND IS NONSPECIFIC, THEN MRI MAY BE INDICATED. 2. NO OTHER SIGNIFICANT OR ACUTE FINDING IN THE ABDOMEN OR PELVIS ON CT SCAN WITH IV CONTRAST. Acute Abdomen Series 11/05/16 00:52 IMPRESSION: Nonobstructive bowel gas pattern. No acute radiographic finding in the chest. Assessment & Plan - Diagnosis (1) Atrial flutter Qualifiers: Atrial flutter type: typical Qualified Code(s): I48.3 - Typical atrial flutter Is this a current diagnosis for this admission?: Yes (2) Abdominal pain Qualifiers: Abdominal location: generalized Qualified Code(s): R10.84 - Generalized abdominal pain (3) Acute pancreatitis Qualifiers: Pancreatitis type: unspecified pancreatitis type Acute pancreatitis complication: no infection or necrosis Qualified Code(s): K85.90 - Acute pancreatitis without necrosis or infection, unspecified Is this a current diagnosis for this admission?: Yes (4) Tobacco abuse Is this a current diagnosis for this admission?: Yes (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 Rate is well controlled. Consider beta- blockers/rate lowering calcium channel blockers if heart rate is increased. Have ordered a 2D echo. 2D echo shows mildly reduced LVEF but no significant valvular abnormalities noted. LVH is noted. Will start metoprolol succinate for rate control. At this point do not feel patient needs chronic anticoagulation. Patient would however be a good candidate for ablation therapy and once his acute pancreatitis subsides, consider electrophysiological consultation or referral for ablation. Abdominal pain: Most likely related to acute pancreatitis. Acute pancreatitis: Agree with current management plans. Tobacco abuse: patient advised to quit smoking. Kidney mass: noted on CT scan. Further evaluation by PMD - Time Time Spent: 30 to 50 Minutes - More than 50% of the time spent coordinating care , discussing management plans with involved caregivers. Management plans discussed with involved personnels. Medical decision making was of moderate to high complexity, patient's has multiple comorbidities. Dr. Simpson covering from tomorrow. Medications reviewed and adjusted accordingly: Yes
--- NOTE | 2016-11-06 19:13 | RADIOLOGY REPORT (SQ) ---
EXAM DESCRIPTION: CT ABDOMEN COMBO COMPLETED DATE/TIME: 11/06/2016 6:49 pm REASON FOR STUDY: evaluate kidney lesion (3mm Slices per Rad on MRI) COMPARISON: None. TECHNIQUE: CT scan of the abdomen performed with and without intravenous contrast, and without oral contrast. Contrasted imaging performed using helical scanning technique with dynamic intravenous cont rast injection. Images reviewed with lung, soft tissue, and bone windows. Reconstructed coronal and s agittal MPR images reviewed. Delayed images for evaluation of the urinary system also acquired and ev aluated. All images stored on PACS. All CT scanners at this facility use dose modulation, iterative reconstruction, and/or weight based d osing when appropriate to reduce radiation dose to as low as reasonably achievable (ALARA). [facility]: Dose Right [facility]: CareDose [facility]: Dose Right [facility]: Teradose 4D [facility]: If You Can CONTRAST TYPE AND DOSE: contrast/concentration: Isovue 370.00 mg/ml; Total Contrast Delivered: 100.0 ml; Total Saline Delivered: 70.1 ml RENAL FUNCTION: Creatinine 0.8 RADIATION DOSE: Up-to-date CT equipment and radiation dose reduction techniques were employed. CTDIv ol: 17.2 - 17.3 mGy. DLP: 1992 mGy-cm.. LIMITATIONS: None. FINDINGS: NONCONTRASTED IMAGING: No significant renal or bladder calcifications. No other significan t organ calcifications. POSTCONTRASTED IMAGING: LOWER CHEST: No significant findings. No nodules or infiltrates. LIVER: Normal size. No masses. No dilated ducts. SPLEEN: Normal size. No focal lesions. PANCREAS: No masses. No significant calcifications. No adjacent inflammation or peripancreatic fluid collections. Pancreatic duct not dilated. GALLBLADDER: No identified stones by CT criteria. No inflammatory changes to suggest cholecystitis. ADRENAL GLANDS: No significant masses or asymmetry. RIGHT KIDNEY AND URETER: The previously described 1.8 cm in diameter cortical mass in the lateral low er pole of the right kidney measures 32 Hounsfield units on the non contrasted study and increases to 75 Hounsfield units on the delayed imaging. This would suggest a solid rather than cystic mass. . No significant calcifications. No hydronephrosis or hydroureter. LEFT KIDNEY AND URETER: No solid masses. No significant calcifications. No hydronephrosis or hydr oureter. AORTA AND VESSELS: No aneurysm. No dissection. Renal arteries, SMA, celiac without stenosis. RETROPERITONEUM: No retroperitoneal adenopathy, hemorrhage or masses. BOWEL AND PERITONEAL CAVITY: No masses or inflammatory changes. No free fluid or peritoneal masses. APPENDIX: Not identified ABDOMINAL WALL: No masses. No hernias. BONES: No significant or acute findings. OTHER: No other significant finding. IMPRESSION: The previously described indeterminate 1.8 cm in diameter cortical mass in the lateral l ower pole of the right kidney demonstrates contrast enhancement on the images obtained post contrast as noted above which would suggest a solid rather than cystic mass. Other findings as noted above TECHNICAL DOCUMENTATION: JOB ID: [id number] Quality ID # [id number]: Final reports with documentation of one or more dose reduction techniques (e.g., Au tomated exposure control, adjustment of the mA and/or kV according to patient size, use of iterative reconstruction technique) 2010 [employer]- All Rights Reserved
--- NOTE | 2016-11-06 19:33 | PDOC PROGRESS REPORT ---
Subjective Progress Note for:: 11/06/16 Subjective:: Patient was seen by the bedside yesterday it was found to have atrial flutter on awake overnight monitor, a 12-lead EKG was done and it confirm atrial flutter with controlled ventricular rate. Consultation was requested from cardiology, Dr. Crocker, he was seen today by Dr. Crocker, 2D echo was done that suggest mildly reduced ejection fraction of left ventricle. He has typical atrial flutter and he will benefit from ablation therapy. The other issue with this patient was and incidental finding of a mass in the right kidney, MRI of the kidney was done today but it was nonconclusive, CT scan of the kidney, dedicated CT scan of the kidney was done today and it confirmed that it is solid mass suggesting a neoplasm. Patient was admitted for acute pancreatitis he has been n.p.o. since admission the lipase is declined since admission he will be started with clear liquid diet. Physical Exam Vital Signs: Temp Pulse Resp BP Pulse Ox 97.5 F 85 18 133/89 H 97 11/06/16 15:29 11/06/16 15:29 11/06/16 15:29 11/06/16 15:29 11/06/16 15:29 Intake & Output 11/05/16 11/06/16 11/07/16 06:59 06:59 06:59 Intake Total 1436 1340 Output Total 800 400 Balance 636 940 Weight 104.3 kg 105 kg General appearance: PRESENT: no acute distress, well-developed, well-nourished Head exam: PRESENT: atraumatic, normocephalic Eye exam: PRESENT: conjunctiva pink, EOMI, PERRLA Ear exam: PRESENT: normal external ear exam Mouth exam: PRESENT: moist, tongue midline Neck exam: PRESENT: full ROM Respiratory exam: PRESENT: clear to auscultation gloria Cardiovascular exam: PRESENT: RRR, +S1, +S2 Pulses: PRESENT: normal dorsalis pedis pul, +2 pedal pulses bilateral Vascular exam: PRESENT: normal capillary refill GI/Abdominal exam: PRESENT: normal bowel sounds, soft Rectal exam: PRESENT: deferred Neurological exam: PRESENT: alert, awake, oriented to person, oriented to place , oriented to time, oriented to situation, CN II-XII grossly intact Psychiatric exam: PRESENT: appropriate affect, normal mood Skin exam: PRESENT: dry, intact, warm Results Laboratory Results: 11/06/16 04:55 11/06/16 04:55 11/06/16 11/06/16 11/06/16 04:55 04:55 04:55 WBC 6.1 RBC 4.87 Hgb 14.6 Hct 41.0 MCV 84 MCH 30.1 MCHC 35.7 RDW 14.8 H Plt Count 150 Seg Neutrophils % 50.0 Lymphocytes % 37.6 Monocytes % 9.3 Eosinophils % 2.2 Basophils % 0.9 Absolute Neutrophils 3.0 Absolute Lymphocytes 2.3 Absolute Monocytes 0.6 Absolute Eosinophils 0.1 Absolute Basophils 0.1 Sodium 139.4 Potassium 4.3 Chloride 105 Carbon Dioxide 25 Anion Gap 9 BUN 8 Creatinine 0.82 Est GFR ( Amer) > 60 Est GFR (Non-Af Amer) > 60 Glucose 95 Calcium 9.1 Total Bilirubin 0.7 AST 17 ALT 26 Alkaline Phosphatase 99 Total Protein 6.8 Albumin 3.7 Triglycerides 58 Cholesterol 161.99 LDL Cholesterol Direct 94 VLDL Cholesterol 12.0 HDL Cholesterol 50 Lipase 457.5 H 11/05/16 11/05/16 11/05/16 06:22 06:22 12:10 Creatine Kinase 194 H 174 H CK-MB (CK-2) 0.94 Troponin I < 0.012 NT-Pro-B Natriuret Pep 81 11/05/16 11/05/16 11/05/16 12:10 18:35 18:35 Creatine Kinase 168 CK-MB (CK-2) 0.96 0.78 Troponin I < 0.012 < 0.012 NT-Pro-B Natriuret Pep Impressions: Abdomen MRI 11/05/16 00:00 IMPRESSION: Indeterminate 1.9 cm lesion of the right kidney ; cannot exclude neoplasm. Further characterization with dedicated dynamic, thin collimation ( 3mm thick) contrast CT of the kidneys recommended. Abdomen Ultrasound 11/05/16 00:00 IMPRESSION: Fatty infiltration of the liver. Mildly dilated common hepatic duct. No cholelithiasis. Suboptimal visualization of the pancreas. Please note that CT and MRI/ MRCP are more sensitive to evaluate for peripancreatic inflammatory changes or fluid collections. Abdomen/Pelvis CT 11/05/16 00:00 IMPRESSION: 1. LESION IN THE LOWER POLE OF THE RIGHT KIDNEY WHICH IS NOT CLEARLY A SIMPLE CORTICAL CYST. RECOMMEND FOLLOW-UP ULTRASOUND OF THE KIDNEYS. IF ULTRASOUND IS NONSPECIFIC, THEN MRI MAY BE INDICATED. 2. NO OTHER SIGNIFICANT OR ACUTE FINDING IN THE ABDOMEN OR PELVIS ON CT SCAN WITH IV CONTRAST. Acute Abdomen Series 11/05/16 00:52 IMPRESSION: Nonobstructive bowel gas pattern. No acute radiographic finding in the chest. Abdomen CT 11/06/16 00:00 IMPRESSION: The previously described indeterminate 1.8 cm in diameter cortical mass in the lateral lower pole of the right kidney demonstrates contrast enhancement on the images obtained post contrast as noted above which would suggest a solid rather than cystic mass. Other findings as noted above Assessment & Plan - Diagnosis (1) Acute pancreatitis Qualifiers: Pancreatitis type: unspecified pancreatitis type Acute pancreatitis complication: no infection or necrosis Qualified Code(s): K85.90 - Acute pancreatitis without necrosis or infection, unspecified Is this a current diagnosis for this admission?: YesPlan: The lipase is the lipase is 457, he will be started on clear liquid diet he was n.p.o. since admission. (2) Typical atrial flutter Is this a current diagnosis for this admission?: YesPlan: He has typical atrial flutter, he was seen by Dr. 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 cryoablation exit.
[2016-11-07 05:19] LABS: ABSOLUTE EOSINOPHILS # (AUTO) 0.2 10^3/uL (0.0-0.6); ABSOLUTE LYMPHOCYTES (AUTO) 2.4 10^3/uL (0.5-4.7); ABSOLUTE MONOCYTES (AUTO) 0.5 10^3/uL (0.1-1.4); ABSOLUTE NEUT (AUTO) 1.8 10^3/uL (1.7-8.2); EOSINOPHILS % (AUTO) 4.1 % (0-6); HEMATOCRIT 41.7 % (37.9-51.0); HEMOGLOBIN 14.8 g/dL (13.5-17.0); HGB HCT DIFFERENCE 2.7; LYMPHOCYTES % (AUTO) 48.6 % (13-45); MEAN CORPUSCULAR HEMOGLOBIN 29.8 pg (27.0-33.4); MEAN CORPUSCULAR HGB CONC 35.5 g/dL (32.0-36.0); MEAN CORPUSCULAR VOLUME 84 fl (80-97); MONOCYTES % (AUTO) 9.9 % (3-13); RED BLOOD COUNT 4.98 10^6/uL (4.35-5.55); RED CELL DISTRIBUTION WIDTH 14.8 % (11.5-14.0); SEGMENTED NEUTROPHILS % (AUTO) 36.4 % (42-78); WHITE BLOOD COUNT 4.9 10^3/uL (4.0-10.5)
[2016-11-07 05:31] LABS: ALANINE AMINOTRANSFERASE 18 U/L (21-72); ALBUMIN 3.7 g/dL (3.5-5.0); ALKALINE PHOSPHATASE 93 U/L (38-126); ANION GAP 10 (5-19); ASPARTATE AMINO TRANSFERASE 14 U/L (17-59); BILIRUBIN,DIRECT 0.2 mg/dL (0.0-0.4); BILIRUBIN,TOTAL 0.6 mg/dL (0.2-1.3); BLOOD UREA NITROGEN 10 mg/dL (7-20); CALCIUM 8.4 mg/dL (8.4-10.2); CARBON DIOXIDE 23 mmol/L (22-30); CHLORIDE 106 mmol/L (98-107); CREATININE RESULT 0.73 mg/dL (0.52-1.25); GLUCOSE 112 mg/dL (75-110); POTASSIUM 4.2 mmol/L (3.6-5.0); TOTAL PROTEIN 6.7 g/dL (6.3-8.2)
[2016-11-07] MEDS: DEXTROSE 5%-NORMAL SALINE 1,000 ML IV PRN (06:14)
--- NOTE | 2016-11-07 08:33 | EKG REPORT ---
SEVERITY:- ABNORMAL ECG - SINUS RHYTHM ATRIAL PREMATURE COMPLEX LONG R-R WITH VENTRICULAR ESCAPE FIRST DEGREE AV BLOCK LASHAWN, CONSIDER BIATRIAL ABNORMALITIES NONSPECIFIC INTRAVENTRICULAR CONDUCTION DELAY : Confirmed by: Shannon Crocker 07-Nov-2016 08:31:55
[2016-11-07] MEDS ORDERED: METOPROLOL SUCCINATE 25 MG TAB.SR.24H PO SCH (10:00)
[2016-11-07] MEDS: ENOXAPARIN SODIUM INJ 40 MG/0.4 ML DISP.SYRIN SUBCUT SCH (10:24)
--- NOTE | 2016-11-07 12:32 | PROGRESS NOTE E ---
Progress Note NAME: ALBERT MONGE : 1955 AGE: 61Y DATE: 11/07/2016 ROOM: 534 SUBJECTIVE: Note that the patient was seen at 8:15 a.m. The patient continues to be in atrial flutter with a controlled ventricular response. He also continues to have intermittent abdominal pain lasting for a few minutes but he says it is of less intensity than before. His lipase is coming down. He denies any chest pain or discomfort. There is no shortness of breath. There is no PND or orthopnea. There is nausea, vomiting, or diarrhea. His monitor strips were reviewed and it shows atrial flutter with controlled ventricular response. His medications have been reviewed. OBJECTIVE: GENERAL: On examination the patient is well built and well nourished, in no acute distress. VITAL SIGNS: He is afebrile with a temperature of 97.9 degrees Fahrenheit. His pulse is 74 beats per minute. Blood pressure is 121/74. Respirations are 17 per minute. O2 sats are 100% on room air. HEENT: Head is atraumatic, normocephalic. Eyes: Pupils are equal, round, regular, reactive to light and accommodation. Extraocular movements are normal. There is no conjunctival pallor. There is no scleral icterus. Ears: Tympanic membranes are intact. Extraocular canals are clear. The rest of the ENT is negative. NECK: Supple. There is no JVD. Carotids are equal. There is no bruit. There are no masses. There is no goiter. Trachea is central. LUNGS: Clear to auscultation and percussion. HEART: S1, S2 are heard. There is no S4 gallop. There is no S3 gallop. There is a systolic murmur in the left sternal border and the apex. There is no rub. ABDOMEN: Soft, but has some mild diffuse tenderness. Bowel sounds are well heard. There is no rebound, guarding, or rigidity. EXTREMITIES: Femorals are slightly diminished. There is no femoral bruit. Leg pulses are slightly pulses. There is no pedal edema. There is no DVT or cellulitis. There is no calf tenderness. CENTRAL NERVOUS SYSTEM: The patient is conscious, awake, alert, oriented x3. With no focal deficit. DIAGNOSTICS: The patient's EKG shows typical flutter with a controlled ventricular response. The patient's 24-hour intake is 3130 mL. Output is 400 mL. I am not sure if this accurate. The patient's white count is 4900, hemoglobin is 14.8, hematocrit is 41.7, platelet count is 159,000. The patient's sodium is 139, potassium 4.2, chloride of 106, CO2 is 23. The patient's BUN is 10, creatinine is 0.73, GFR is greater than 60. His glucose is 112. His calcium is 8.4. His liver function tests are normal except for a low AST and low ALT of 14 and 18 respectively. His alk phos is 93. The patient's lipase came down to 457.5. The patient's total protein is 6.7. Albumin is 3.7. IMPRESSION: 1. ACUTE PANCREATITIS. 2. HYPERLIPASEMIA, ELEVATED LIPASE LEVEL. 3. TYPICAL ATRIAL FLUTTER WITH CONTROLLED VENTRICULAR RESPONSE. 4. ABDOMINAL PAIN. 5. LESION OF THE LOWER POLE OF THE RIGHT KIDNEY WHICH IS *------* TO CORTICAL CYST. RECOMMENDATION: Continue current medication including his beta maryjane. Continue IV fluids. I agree with Dr. Crocker and at present it might be dangerous to put the patient on chronic anticoagulation. Once pancreatitis resolves, then the patient can be sent for atrial flutter ablation since it is typical atrial flutter. Note that the patient states that he is a FULL CODE and his sister is his surrogate healthcare decision make. Note his medications have been reviewed and the case discussed with the other physicians involved in the case and the nurses involved in the case. We will follow with you. Note, 30 minutes spent on this patient with more than 50% of the time spent on direct patient care. At present it seems to be of moderate intensity of medical decision making. Thanking you. DICTATING PHYSICIAN: ITALIA ROMERO M.D. [id number] BRIAY#: [id number] ID: [id number] JOB#: [id number] ACCT: [id number] cc: >
--- NOTE | 2016-11-07 18:18 | PDOC DISCHARGE SUMMARY ---
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 In the emergency room he was evaluated he was found to have severely elevated serum lipase over 7000 this suggests he has acute pancreatitis. The pain is in the upper abdomen, it radiated to the back. I ordered a CT scan of the abdomen and pelvis with IV contrast, CT scan did not show any acute pathology but there was incidental finding of a 1.8 cm lesion in the right kidney cortex is not well characterized as a cyst further imaging studies recommended. The ultrasound of the goal bladder was negative for gallstones,He does not habitually consume alcoholic beverages Hospital Course Hospital Course: Patient was admitted for the management of acute pancreatitis, CAT scan of the abdomen was done, there was incidental finding of a 1.8 cm lesion right kidney, subsequent CT scan of the abdomen with contrast confirmed that the lesion is a solid mass. He was also incidentally diagnosed with typical atrial flutter with controlled ventricular rate. He was seen by cardiology. 2D echo was done that showed normal ejection fraction of left ventricle The acute pancreatitis was managed conservatively with intravenous fluid, he was kept n.p.o. for 2 days , presently tolerating food. Physical Exam Vital Signs: Temp Pulse Resp BP Pulse Ox 98.3 F 101 H 16 110/78 98 11/07/16 03:13 11/07/16 14:00 11/07/16 03:13 11/07/16 03:13 11/07/16 03:13 Intake & Output 11/06/16 11/07/16 11/08/16 06:59 06:59 06:59 Intake Total 1436 3130 Output Total 800 400 Balance 636 2730 Weight 105 kg 105.6 kg General appearance: PRESENT: no acute distress Eye exam: PRESENT: PERRLA Respiratory exam: PRESENT: clear to auscultation gloria Cardiovascular exam: PRESENT: +S1, +S2 GI/Abdominal exam: PRESENT: soft Neurological exam: PRESENT: alert, CN II-XII grossly intact Results Laboratory Results: 11/07/16 05:05 11/07/16 05:05 11/07/16 11/07/16 05:05 05:05 WBC 4.9 RBC 4.98 Hgb 14.8 Hct 41.7 MCV 84 MCH 29.8 MCHC 35.5 RDW 14.8 H Plt Count 159 Seg Neutrophils % 36.4 L Lymphocytes % 48.6 H Monocytes % 9.9 Eosinophils % 4.1 Basophils % 1.0 Absolute Neutrophils 1.8 Absolute Lymphocytes 2.4 Absolute Monocytes 0.5 Absolute Eosinophils 0.2 Absolute Basophils 0.0 Sodium 139.0 Potassium 4.2 Chloride 106 Carbon Dioxide 23 Anion Gap 10 BUN 10 Creatinine 0.73 Est GFR ( Amer) > 60 Est GFR (Non-Af Amer) > 60 Glucose 112 H Calcium 8.4 Total Bilirubin 0.6 AST 14 L ALT 18 L Alkaline Phosphatase 93 Total Protein 6.7 Albumin 3.7 11/05/16 11/05/16 11/05/16 06:22 06:22 12:10 Creatine Kinase 194 H 174 H CK-MB (CK-2) 0.94 Troponin I < 0.012 NT-Pro-B Natriuret Pep 81 11/05/16 11/05/16 11/05/16 12:10 18:35 18:35 Creatine Kinase 168 CK-MB (CK-2) 0.96 0.78 Troponin I < 0.012 < 0.012 NT-Pro-B Natriuret Pep Impressions: Abdomen MRI 11/05/16 00:00 IMPRESSION: Indeterminate 1.9 cm lesion of the right kidney ; cannot exclude neoplasm. Further characterization with dedicated dynamic, thin collimation ( 3mm thick) contrast CT of the kidneys recommended. Abdomen Ultrasound 11/05/16 00:00 IMPRESSION: Fatty infiltration of the liver. Mildly dilated common hepatic duct. No cholelithiasis. Suboptimal visualization of the pancreas. Please note that CT and MRI/ MRCP are more sensitive to evaluate for peripancreatic inflammatory changes or fluid collections. Abdomen/Pelvis CT 11/05/16 00:00 IMPRESSION: 1. LESION IN THE LOWER POLE OF THE RIGHT KIDNEY WHICH IS NOT CLEARLY A SIMPLE CORTICAL CYST. RECOMMEND FOLLOW-UP ULTRASOUND OF THE KIDNEYS. IF ULTRASOUND IS NONSPECIFIC, THEN MRI MAY BE INDICATED. 2. NO OTHER SIGNIFICANT OR ACUTE FINDING IN THE ABDOMEN OR PELVIS ON CT SCAN WITH IV CONTRAST. Acute Abdomen Series 11/05/16 00:52 IMPRESSION: Nonobstructive bowel gas pattern. No acute radiographic finding in the chest. Abdomen CT 11/06/16 00:00 IMPRESSION: The previously described indeterminate 1.8 cm in diameter cortical mass in the lateral lower pole of the right kidney demonstrates contrast enhancement on the images obtained post contrast as noted above which would suggest a solid rather than cystic mass. Other findings as noted above
[2016-11-07 18:25] VITALS: BP 125/82
== END 2016-11-07 19:00 | disposition home or self-care (01) | DRG 439 ==
LOC: ER 23:42 → EH 11-05 05:34 → UNDOADMIN 11-05 05:34 → EH 11-05 05:44 → 5 11-05 07:29
PROVIDERS: ADMIT Internal Medicine; ATTEND Internal Medicine
DX: K85.90 Acute pancreatitis without necrosis or infection, unspecified (principal); I48.3 Typical atrial flutter; D41.4 Neoplasm of uncertain behavior of bladder; M19.90 Unspecified osteoarthritis, unspecified site; F17.210 Nicotine dependence, cigarettes, uncomplicated; Z79.899 Other long term (current) drug therapy
CPT/HCPCS: 36415; 74022; 74170; 74177; 74183; 76700; 80048; 80053; 80061; 80076; 80307; 81001; 82140; 82150; 82550; 82553; 83036; 83605; 83690; 83735; 83880; 84100; 84439; 84443; 84484; 85025; 85610; 85730; 87040; 87086; 93005; 93010; 93306; 96374; 99285; A9576; J1170; J1650; J2060; J2270; J3480; J7030; S0119

== ENCOUNTER → 2018-01-24 | Outpatient (CLI) | payer OTHER ==
[2018-01-24 16:23] LABS: ABSOLUTE BASOPHILS # (AUTO) 0.1 10^3/uL (0.0-0.2); ABSOLUTE EOSINOPHILS # (AUTO) 0.2 10^3/uL (0.0-0.6); ABSOLUTE LYMPHOCYTES (AUTO) 2.6 10^3/uL (0.5-4.7); ABSOLUTE MONOCYTES (AUTO) 0.6 10^3/uL (0.1-1.4); ABSOLUTE NEUT (AUTO) 2.8 10^3/uL (1.7-8.2); BASOPHILS % (AUTO) 0.8 % (0-2); EOSINOPHILS % (AUTO) 3.5 % (0-6); HEMATOCRIT 41.2 % (37.9-51.0); HEMOGLOBIN 14.7 g/dL (13.5-17.0); LYMPHOCYTES % (AUTO) 41.2 % (13-45); MEAN CORPUSCULAR HEMOGLOBIN 29.7 pg (27.0-33.4); MEAN CORPUSCULAR HGB CONC 35.8 g/dL (32.0-36.0); MEAN CORPUSCULAR VOLUME 83 fl (80-97); PLATELET COUNT 147 10^3/uL (150-450); RED BLOOD COUNT 4.96 10^6/uL (4.35-5.55); RED CELL DISTRIBUTION WIDTH 15.2 % (11.5-14.0); SEGMENTED NEUTROPHILS % (AUTO) 44.5 % (42-78); TOTAL CELLS COUNTED % (AUTO) 100 %; WHITE BLOOD COUNT 6.3 10^3/uL (4.0-10.5)
[2018-01-24 16:50] LABS: ALANINE AMINOTRANSFERASE 21 U/L (21-72); ALBUMIN 4.2 g/dL (3.5-5.0); ALKALINE PHOSPHATASE 128 U/L (38-126); ANION GAP 11 (5-19); ASPARTATE AMINO TRANSFERASE 24 U/L (17-59); BILIRUBIN,DIRECT 0.1 mg/dL (0.0-0.4); BILIRUBIN,TOTAL 0.4 mg/dL (0.2-1.3); BLOOD UREA NITROGEN 10 mg/dL (7-20); CALCIUM 9.4 mg/dL (8.4-10.2); CARBON DIOXIDE 26 mmol/L (22-30); CHLORIDE 108 mmol/L (98-107); GLUCOSE 105 mg/dL (75-110); POTASSIUM 4.1 mmol/L (3.6-5.0); SODIUM 145.4 mmol/L (137-145); TOTAL PROTEIN 7.2 g/dL (6.3-8.2)
== END ==
LOC: LAB 16:00
PROVIDERS: ATTEND Physician Assistant Surgical
DX: R10.812 Left upper quadrant abdominal tenderness (principal); R10.32 Left lower quadrant pain
CPT/HCPCS: 36415; 80053; 85025

== ENCOUNTER → 2018-01-28 | Outpatient (CLI) | payer OTHER ==
--- NOTE | 2018-01-28 15:24 | RADIOLOGY REPORT (SQ) ---
EXAM DESCRIPTION: CT ABD/PELVIS WITH IV ORAL COMPLETED DATE/TIME: 01/28/2018 3:11 pm REASON FOR STUDY: R10.32 LEFT LOWER QUADRANT PAIN R10.814 LEFT LOWER QUADRANT ABDOMINAL TENDE R10.32 LEFT LOWER QUADRANT PAIN R10.814 LEFT LOWER QUADRANT ABDOMINAL TENDERNESS R10.812 LEFT UPPER QUAD RANT ABDOMINAL TENDERNESS COMPARISON: 11/06/2016 TECHNIQUE: CT scan of the abdomen and pelvis performed using helical scanning technique with dynamic intravenous contrast injection. No oral contrast. Images reviewed with lung, soft tissue, and bone windows. Reconstructed coronal and sagittal MPR images reviewed. Delayed images for evaluation of the urinary system also acquired. All images stored on PACS. All CT scanners at this facility use dose modulation, iterative reconstruction, and/or weight based d osing when appropriate to reduce radiation dose to as low as reasonably achievable (ALARA). [facility]: Dose Right [facility]: CareDose [facility]: Dose Right [facility]: Teradose 4D [facility]: [employer] CONTRAST TYPE AND DOSE: contrast/concentration: Isovue 350.00 mg/ml; Total Contrast Delivered: 100.0 ml; Total Saline Delivered: 72.0 ml RENAL FUNCTION: BUN 10, creatinine 0.79 RADIATION DOSE: CT Rad equipment meets quality standard of care and radiation dose reduction techniq ues were employed. CTDIvol: 14.8 - 17.1 mGy. DLP: 1657 mGy-cm.. LIMITATIONS: None. FINDINGS: LOWER CHEST: There is focal airspace disease in the right medial base most likely atelecta sis or scar. Similar findings were present previously. LIVER: Normal size. No masses. No dilated ducts. SPLEEN: Normal size. No focal lesions. PANCREAS: No masses. No significant calcifications. No adjacent inflammation or peripancreatic fluid collections. Pancreatic duct not dilated. GALLBLADDER: No identified stones by CT criteria. No inflammatory changes to suggest cholecystitis. ADRENAL GLANDS: No significant masses or asymmetry. RIGHT KIDNEY AND URETER: There is a solid mass off the inferior pole the right kidney. This measures 2.2 cm in greatest diameter it has slightly increased in size from prior CT done October 2016 pre kristen plasm is suspected. No significant calcifications. No hydronephrosis or hydroureter. LEFT KIDNEY AND URETER: No solid masses. No significant calcifications. No hydronephrosis or hydr oureter. AORTA AND VESSELS: No aneurysm. No dissection. Renal arteries, SMA, celiac without stenosis. RETROPERITONEUM: No retroperitoneal adenopathy, hemorrhage or masses. BOWEL AND PERITONEAL CAVITY: No masses or inflammatory changes. No free fluid or peritoneal masses. APPENDIX: Normal. PELVIS: No mass. No free fluid. Normal bladder. ABDOMINAL WALL: There is an umbilical hernia containing omental fat only. BONES: Small sclerotic lesions in the left ilium are unchanged most likely bone islands. OTHER: No other significant finding. IMPRESSION: 1. Solid right cortical renal mass has slightly increased in size. It measures 2.2 cm and is suspicious for renal cell carcinoma. 2. No other significant findings in the abdomen or pelvis. TECHNICAL DOCUMENTATION: JOB ID: [id number] Quality ID # [id number]: Final reports with documentation of one or more dose reduction techniques (e.g., Au tomated exposure control, adjustment of the mA and/or kV according to patient size, use of iterative reconstruction technique) 2010 [employer]- All Rights Reserved Reading location - IP/workstation name: [email or web address]
== END ==
LOC: RAD 15:08
PROVIDERS: ATTEND Internal Medicine Gastroenterology
DX: R10.32 Left lower quadrant pain (principal); R10.814 Left lower quadrant abdominal tenderness; R10.812 Left upper quadrant abdominal tenderness; K42.9 Umbilical hernia without obstruction or gangrene
CPT/HCPCS: 74177

== ENCOUNTER 2018-04-22 18:36 | Emergency (ER) | payer OTHER ==
[2018-04-22] MEDS ORDERED: CYCLOBENZAPRINE HCL 10 MG TABLET PO ONE (19:34)
[2018-04-22] MEDS ORDERED: IBUPROFEN 800 MG TABLET PO ONE (19:34)
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
[2018-04-22 19:58] VITALS: BP 151/85
== END 2018-04-22 20:01 | disposition home or self-care (01) ==
LOC: ER 18:36
DX: M54.2 Cervicalgia (principal); G44.89 Other headache syndrome; V89.2XXA Person injured in unspecified motor-vehicle accident, traffic, initial encounter; F17.200 Nicotine dependence, unspecified, uncomplicated; I48.91 Unspecified atrial fibrillation
CPT/HCPCS: 99283

== ENCOUNTER 2018-06-01 12:07 | Inpatient (IN) | payer OTHER ==
--- NOTE | 2018-06-01 12:24 | ER Document Report ---
ED General - General Chief Complaint: Chest Pain Stated Complaint: CHEST PAIN Time Seen by Provider: 06/01/18 12:24 Notes: Patient is a 62-year-old male with history of atrial fibrillation and hypertension that presents to the emergency department for chief complaint of chest pain. The patient reports that the pain started yesterday. The currently rate the pain as 4 out of 10, and described as heaviness in his chest that radiated towards the left side, was worse with exertion and had associated shortness of breath. Denies any diaphoresis, nausea or vomiting. Their risk factors for heart disease include history of atrial fibrillation, obesity, reports having a stress test last year the year prior, he thinks that it may have been positive but he does not remember, he did have cardiac ablation performed when he was diagnosed with atrial fibrillation or flutter. Denies heart cath in the past or stents. He does admit to smoking cigarettes.. Past Medical History: Atrial fibrillation Past Surgical History: Cardiac ablation Social History: Admits to smoking cigarettes, denies alcohol or drug use. Family History: Reviewed and noncontributory for presenting illness Allergies: Reviewed, see documented allergy list. REVIEW OF SYSTEMS: Other than noted above, the 12 point review of systems was reviewed with the patient and were negative, all pertinent findings are included in the HPI. PHYSICAL EXAMINATION: Vital signs reviewed, nursing noted reviewed. GENERAL: Well-appearing, well-nourished and in no acute distress. HEAD: Atraumatic, normocephalic. EYES: Eyes appear normal, extraocular movements intact, sclera anicteric, conjunctiva are normal. ENT: nares patent, oropharynx clear without exudates. Moist mucous membranes. NECK: Normal range of motion, supple without lymphadenopathy LUNGS: Breath sounds clear to auscultation bilaterally and equal. No wheezes rales or rhonchi. HEART: Regular rate and rhythm without murmurs ABDOMEN: Soft, nontender, normoactive bowel sounds. No rebound, guarding, or rigidity. No masses appreciated. EXTREMITIES: Nontender, good range of motion, no pitting or edema. NEUROLOGICAL: No focal neurological deficits. Moves all extremities spontaneously Motor and sensory grossly intact on exam. PSYCH: Normal mood, normal affect. SKIN: Warm, Dry, normal turgor, no rashes or lesions noted on exposed skin TRAVEL OUTSIDE OF THE [place] IN LAST 30 DAYS: No - Related Data Allergies/Adverse Reactions: No Known Allergies Allergy (Verified 06/01/18 12:23) Past Medical History - Social History Smoking Status: Current Every Day Smoker Family History: Reviewed & Not Pertinent Patient has suicidal ideation: No Patient has homicidal ideation: No - Past Medical History Cardiac Medical History: Reports: Hx Atrial Fibrillation Denies: Hx Coronary Artery Disease, Hx Heart Attack, Hx Hypertension Pulmonary Medical History: Denies: Hx Asthma, Hx Bronchitis, Hx COPD, Hx Pneumonia, Hx Tuberculosis Neurological Medical History: Denies: Hx Cerebrovascular Accident, Hx Seizures Renal/ Medical History: Denies: Hx Peritoneal Dialysis Musculoskeletal Medical History: Reports Hx Arthritis Past Surgical History: Reports: Hx Orthopedic Surgery - right leg. Denies: Hx Pacemaker - Immunizations Hx Diphtheria, Pertussis, Tetanus Vaccination: Yes Physical Exam - Vital signs Vitals: Temp Pulse Resp BP Pulse Ox 97.9 F 68 18 134/94 H 99 06/01/18 12:15 06/01/18 12:15 06/01/18 12:15 06/01/18 12:15 06/01/18 12:15 Course - Re-evaluation Re-evalutation: Patient seen and examined vital signs reviewed. Laboratory data and imaging were ordered as appropriate for the patient's presenting symptoms and complaint, with consideration of any critical or life threatening conditions that may be associated with their obtained history and exam as noted above. Patient was treated with aspirin and nitroglycerin by EMS Results were reviewed when available and demonstrated negative troponin, EKG nonischemic pattern, blood work otherwise unremarkable. The patient was re-evaluated and was stable Evaluation was most consistent with chest pain Results were discussed with the patient at this point after careful consideration I feel that that patient should be admitted to the hospital. This was discussed with the patient that it is in the best interest for their care to be admitted for further evaluation and management. Patient agreed with this plan of care. A call was placed to the admitted physician, Dr. Rivas who graciously accepted the patient onto their service. *Note is created using voice recognition software and may contain spelling, syntax or grammatical errors. Laboratory 06/01/18 06/01/18 06/01/18 11:56 11:56 11:56 WBC 7.7 RBC 5.01 Hgb 15.0 Hct 41.2 MCV 82 MCH 30.0 MCHC 36.5 H RDW 15.1 H Plt Count 182 Seg Neutrophils % 37.1 L Lymphocytes % 49.1 H Monocytes % 10.1 Eosinophils % 3.6 Basophils % 0.1 Absolute Neutrophils 2.9 Absolute Lymphocytes 3.8 Absolute Monocytes 0.8 Absolute Eosinophils 0.3 Absolute Basophils 0.0 Sodium 140.4 Potassium 4.4 Chloride 105 Carbon Dioxide 27 Anion Gap 8 BUN 11 Creatinine 0.86 Est GFR ( Amer) > 60 Est GFR (Non-Af Amer) > 60 Glucose 119 H Calcium 9.2 Total Bilirubin 0.6 Direct Bilirubin 0.2 Neonat Total Bilirubin Not Reportable Neonat Direct Bilirubin Not Reportable Neonat Indirect Bili Not Reportable AST 37 ALT 26 Alkaline Phosphatase 116 Troponin I < 0.012 Total Protein 7.5 Albumin 4.4 Chest X-Ray 06/01/18 12:24 IMPRESSION: NO ACUTE RADIOGRAPHIC FINDING IN THE CHEST. - Vital Signs Vital signs: Temp Pulse Resp BP Pulse Ox 97.9 F 68 18 134/94 H 99 06/01/18 12:15 06/01/18 12:15 06/01/18 12:15 06/01/18 12:15 06/01/18 12:26 - Laboratory Result Diagrams: 06/01/18 11:56 06/01/18 11:56 Laboratory results interpreted by me: 06/01/18 06/01/18 11:56 11:56 MCHC 36.5 H RDW 15.1 H Seg Neutrophils % 37.1 L Lymphocytes % 49.1 H Glucose 119 H - EKG Interpretation by Me Additional EKG results interpreted by me: EKG demonstrates sinus rhythm with a ventricular rate of 58 bpm, left axis deviation, normal intervals, occasional PAC and PVCs noted, no ST elevation noted, no T wave inversions. This is compared with prior EKG from 11/07/2016, when at that time the patient was in atrial flutter. Discharge - Discharge Clinical Impression: Chest pain Qualifiers: Chest pain type: unspecified Qualified Code(s): R07.9 - Chest pain, unspecified Condition: Stable Disposition: ADMITTED OBSERVATION Admitting Provider: Rivas Unit Admitted: Telemetry
[2018-06-01 13:14] LABS: ALANINE AMINOTRANSFERASE 26 U/L (21-72); ALBUMIN 4.4 g/dL (3.5-5.0); ALKALINE PHOSPHATASE 116 U/L (38-126); ANION GAP 8 (5-19); ASPARTATE AMINO TRANSFERASE 37 U/L (17-59); BILIRUBIN,DIRECT 0.2 mg/dL (0.0-0.4); BILIRUBIN,TOTAL 0.6 mg/dL (0.2-1.3); BLOOD UREA NITROGEN 11 mg/dL (7-20); CALCIUM 9.2 mg/dL (8.4-10.2); CARBON DIOXIDE 27 mmol/L (22-30); CHLORIDE 105 mmol/L (98-107); GLUCOSE 119 mg/dL (75-110); POTASSIUM 4.4 mmol/L (3.6-5.0); SODIUM 140.4 mmol/L (137-145); TOTAL PROTEIN 7.5 g/dL (6.3-8.2)
--- NOTE | 2018-06-01 13:15 | RADIOLOGY REPORT (SQ) ---
EXAM DESCRIPTION: CHEST SINGLE VIEW COMPLETED DATE/TIME: 06/01/2018 1:06 pm REASON FOR STUDY: chest pain COMPARISON: 04/29/2015. EXAM PARAMETERS: NUMBER OF VIEWS: One view. TECHNIQUE: Single frontal radiographic view of the chest acquired. RADIATION DOSE: NA LIMITATIONS: None. FINDINGS: LUNGS AND PLEURA: No opacities, masses or pneumothorax. No pleural effusion. MEDIASTINUM AND HILAR STRUCTURES: No masses. Contour normal. HEART AND VASCULAR STRUCTURES: Heart normal in size. Normal vasculature. BONES: No acute findings. HARDWARE: None in the chest. OTHER: No other significant finding. IMPRESSION: NO ACUTE RADIOGRAPHIC FINDING IN THE CHEST. TECHNICAL DOCUMENTATION: JOB ID: [id number] [employer]- All Rights Reserved Reading location - IP/workstation name: [email or web address]
[2018-06-01 13:25] LABS: ABSOLUTE EOSINOPHILS # (AUTO) 0.3 10^3/uL (0.0-0.6); ABSOLUTE LYMPHOCYTES (AUTO) 3.8 10^3/uL (0.5-4.7); ABSOLUTE MONOCYTES (AUTO) 0.8 10^3/uL (0.1-1.4); ABSOLUTE NEUT (AUTO) 2.9 10^3/uL (1.7-8.2); BASOPHILS % (AUTO) 0.1 % (0-2); EOSINOPHILS % (AUTO) 3.6 % (0-6); HEMATOCRIT 41.2 % (37.9-51.0); LYMPHOCYTES % (AUTO) 49.1 % (13-45); MEAN CORPUSCULAR HGB CONC 36.5 g/dL (32.0-36.0); MEAN CORPUSCULAR VOLUME 82 fl (80-97); MONOCYTES % (AUTO) 10.1 % (3-13); PLATELET COUNT 182 10^3/uL (150-450); RED BLOOD COUNT 5.01 10^6/uL (4.35-5.55); RED CELL DISTRIBUTION WIDTH 15.1 % (11.5-14.0); SEGMENTED NEUTROPHILS % (AUTO) 37.1 % (42-78); TOTAL CELLS COUNTED % (AUTO) 100 %; WHITE BLOOD COUNT 7.7 10^3/uL (4.0-10.5)
[2018-06-01] MEDS ORDERED: ACETAMINOPHEN 325 MG TABLET PO PRN (13:47)
[2018-06-01] MEDS: ENOXAPARIN SODIUM INJ 40 MG/0.4 ML DISP.SYRIN SUBCUT SCH (16:15)
[2018-06-01] MEDS: LANSOPRAZOLE 15 MG TAB.RAP.DR PO SCH (16:18)
--- NOTE | 2018-06-01 18:10 | PDOC H&P ---
History of Present Illness Admission Date/PCP: 06/01/18 13:47 ROMULO LOZADA MD Patient complains of: Chest pain History of Present Illness: ALBERT MONGE is a 62 year old male This is a 62-year-old male with a history of the atrial flutter hypertension's history of the pancreatitis noticed the chest pain on the left side on and off since yesterday and not feeling well denied any short of breath denied any headache no nausea no vomiting no cough came to the emergency departments with a complaining of a chest pain when the EMS and given nitro and pretty much relieved the pain in the ER Patient EKG and a cardiac enzyme is all negative in the beginning and decided to admit in the hospital for further evaluations to rule out any acute coronary syndromes I saw the patient on the floor patient's denied any chest pain no short of breath Patient is noticed since yesterday the symptoms Patient have a history of the flutter seen by Dr. Simpson last year Denied any history of any blood clot Denied any heartburn Past Medical History Cardiac Medical History: Reports: Atrial Fibrillation Denies: Coronary Artery Disease, Myocardial Infarction, Hypertension Pulmonary Medical History: Denies: Asthma, Bronchitis, Chronic Obstructive Pulmonary Disease (COPD), Pneumonia, Tuberculosis Neurological Medical History: Denies: Seizures Musculoskeltal Medical History: Reports: Arthritis Past Surgical History Past Surgical History: Reports: Orthopedic Surgery - right leg Denies: Pacemaker Social History Smoking Status: Current Every Day Smoker Frequency of Alcohol Use: Social Hx Recreational Drug Use: No Drugs: None Hx Prescription Drug Abuse: No - Advance Directive Resuscitation Status: Full Code Family History Family History: Reviewed & Not Pertinent Parental Family History Reviewed: Yes Children Family History Reviewed: Yes Sibling(s) Family History Reviewed.: Yes Medication/Allergy Home Medications: No Home Medications 06/01/18 Allergies/Adverse Reactions: No Known Allergies Allergy (Verified 06/01/18 12:23) Review of Systems Constitutional: ABSENT: chills, fever(s), headache(s), weight gain, weight loss Eyes: ABSENT: visual disturbances Ears: ABSENT: hearing changes Cardiovascular: PRESENT: chest pain, dyspnea on exertion. ABSENT: edema, orthropnea, palpitations Respiratory: ABSENT: cough, hemoptysis Gastrointestinal: ABSENT: abdominal pain, constipation, diarrhea, hematemesis, hematochezia, nausea, vomiting Genitourinary: ABSENT: dysuria, hematuria Musculoskeletal: ABSENT: joint swelling Integumentary: ABSENT: rash, wounds Neurological: ABSENT: abnormal gait, abnormal speech, confusion, dizziness, focal weakness, syncope Psychiatric: ABSENT: anxiety, depression, homidical ideation, suicidal ideation Endocrine: ABSENT: cold intolerance, heat intolerance, menstrual abnormalities, polydipsia, polyuria Hematologic/Lymphatic: ABSENT: easy bleeding, easy bruising, lymphadenopathy Physical Exam Vital Signs: Temp Pulse Resp BP Pulse Ox 97.9 F 50 L 20 133/76 H 98 06/01/18 15:03 06/01/18 15:03 06/01/18 15:03 06/01/18 15:03 06/01/18 15:03 Intake & Output 05/31/18 06/01/18 06/02/18 06:59 06:59 06:59 Weight 110.1 kg General appearance: PRESENT: no acute distress, well-developed, well-nourished Head exam: PRESENT: atraumatic, normocephalic Eye exam: PRESENT: conjunctiva pink, EOMI, PERRLA. ABSENT: scleral icterus Ear exam: PRESENT: normal external ear exam Mouth exam: PRESENT: moist, tongue midline Neck exam: PRESENT: full ROM. ABSENT: carotid bruit, JVD, lymphadenopathy, thyromegaly Respiratory exam: PRESENT: clear to auscultation gloria Cardiovascular exam: PRESENT: RRR. ABSENT: diastolic murmur, rubs, systolic murmur Vascular exam: PRESENT: normal capillary refill GI/Abdominal exam: PRESENT: normal bowel sounds, soft. ABSENT: distended, guarding, mass, organolmegaly, rebound, tenderness Rectal exam: PRESENT: deferred Musculoskeletal exam: PRESENT: ambulatory Neurological exam: PRESENT: alert, awake, oriented to person, oriented to place, oriented to time, oriented to situation, CN II-XII grossly intact. ABSENT: mot or sensory deficit Psychiatric exam: PRESENT: appropriate affect, normal mood. ABSENT: homicidal ideation, suicidal ideation Skin exam: PRESENT: dry, intact, warm. ABSENT: cyanosis, rash Results Laboratory Results: 06/01/18 11:56 06/01/18 11:56 06/01/18 06/01/18 11:56 11:56 WBC 7.7 RBC 5.01 Hgb 15.0 Hct 41.2 MCV 82 MCH 30.0 MCHC 36.5 H RDW 15.1 H Plt Count 182 Seg Neutrophils % 37.1 L Lymphocytes % 49.1 H Monocytes % 10.1 Eosinophils % 3.6 Basophils % 0.1 Absolute Neutrophils 2.9 Absolute Lymphocytes 3.8 Absolute Monocytes 0.8 Absolute Eosinophils 0.3 Absolute Basophils 0.0 Sodium 140.4 Potassium 4.4 Chloride 105 Carbon Dioxide 27 Anion Gap 8 BUN 11 Creatinine 0.86 Est GFR ( Amer) > 60 Est GFR (Non-Af Amer) > 60 Glucose 119 H Calcium 9.2 Total Bilirubin 0.6 AST 37 ALT 26 Alkaline Phosphatase 116 Total Protein 7.5 Albumin 4.4 06/01/18 11:56 Troponin I < 0.012 Impressions: Chest X-Ray 06/01/18 12:24 IMPRESSION: NO ACUTE RADIOGRAPHIC FINDING IN THE CHEST. Assessment & Plan - Diagnosis (1) Chest pain Qualifiers: Chest pain type: unspecified Qualified Code(s): R07.9 - Chest pain, unspecified Is this a current diagnosis for this admission?: Yes Plan: Admit the patient on telemetry bed We will get the CT of the chest to rule out other etiology Will get the acute coronary syndrome rule out consult cardiology (2) Atrial flutter Qualifiers: Atrial flutter type: unspecified Qualified Code(s): I48.92 - Unspecified atrial flutter Is this a current diagnosis for this admission?: Yes Plan: Continues to current medications (3) Tobacco abuse Is this a current diagnosis for this admission?: Yes Plan: Discussed with the patient about smoking counseling (4) Hypertension Qualifiers: Hypertension type: essential hypertension Qualified Code(s): I10 - Essential (primary) hypertension Is this a current diagnosis for this admission?: Yes Plan: List of current medications - Time Time Spent: 30 to 50 Minutes Medications reviewed and adjusted accordingly: Yes Anticipated discharge: Home Within: Other - Inpatient Certification Based on my medical assessment, after consideration of the patient's comorbidities, presenting symptoms, or acuity I expect that the services needed warrant INPATIENT care.: Yes I certify that my determination is in accordance with my understanding of Medicare's requirements for reasonable and necessary INPATIENT services [42 CFR 412.3e].: Yes Medical Necessity: Need Close Monitoring Due to Risk of Patient Decompensation 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
--- NOTE | 2018-06-01 19:28 | RADIOLOGY REPORT (SQ) ---
EXAM DESCRIPTION: CTA CHEST COMPLETED DATE/TIME: 06/01/2018 7:13 pm REASON FOR STUDY: r/o PE COMPARISON: None. TECHNIQUE: CT scan of the chest performed using helical scanning technique with dynamic intravenous contrast injection. Images reviewed with lung, soft tissue and bone windows. Reconstructed coronal and sagittal MPR images reviewed. Additional 3 dimensional post-processing performed to develop Maximal Intensity Projection images ([place] P). All images stored on PACS. All CT scanners at this facility use dose modulation, iterative reconstruction, and/or weight based d osing when appropriate to reduce radiation dose to as low as reasonably achievable (ALARA). [facility]: Dose Right [facility]: CareDose [facility]: Dose Right [facility]: Teradose 4D [facility]: ZummZumm CONTRAST TYPE AND DOSE: contrast/concentration: Isovue 350.00 mg/ml; Total Contrast Delivered: 75.0 ml; Total Saline Delivered: 100.0 ml Contrast bolus adequate for pulmonary arteries and aorta. RENAL FUNCTION: GFR > 60. RADIATION DOSE: CT Rad equipment meets quality standard of care and radiation dose reduction techniq ues were employed. CTDIvol: 19.8 - 22.1 mGy. DLP: 962 mGy-cm. . LIMITATIONS: None. FINDINGS: LUNGS AND PLEURA: No masses, infiltrates, or pneumothorax. No pleural effusions or pleura l calcifications. AORTA AND GREAT VESSELS: No aneurysm. No dissection. HEART: No pericardial effusion. No significant coronary artery calcifications. PULMONARY ARTERIES: No emboli visualized in the main pulmonary arteries or the segmental branches. HILAR AND MEDIASTINAL STRUCTURES: No identified masses or abnormal nodes. HARDWARE: None in the chest. UPPER ABDOMEN: No significant findings. Limited exam. THYROID AND OTHER SOFT TISSUES: No masses. No adenopathy. BONES: No acute or significant finding. 3D MIPS: Confirm above findings. OTHER: No other significant finding. IMPRESSION: NORMAL CTA OF THE CHEST. NO PULMONARY EMBOLI. COMMENT: Quality ID # [id number]: Final reports with documentation of one or more dose reduction techniques (e.g., Automated exposure control, adjustment of the mA and/or kV according to patient size, use of iterative reconstruction technique) TECHNICAL DOCUMENTATION: JOB ID: [id number] [employer]- All Rights Reserved Reading location - IP/workstation name: [email or web address]
[2018-06-02] MEDS: LANSOPRAZOLE 15 MG TAB.RAP.DR PO SCH ×2 (06:27→17:01)
[2018-06-02 08:26] LABS: ABSOLUTE EOSINOPHILS # (AUTO) 0.2 10^3/uL (0.0-0.6); ABSOLUTE LYMPHOCYTES (AUTO) 1.9 10^3/uL (0.5-4.7); ABSOLUTE MONOCYTES (AUTO) 0.5 10^3/uL (0.1-1.4); ABSOLUTE NEUT (AUTO) 2.3 10^3/uL (1.7-8.2); BASOPHILS % (AUTO) 0.2 % (0-2); EOSINOPHILS % (AUTO) 4.1 % (0-6); HEMOGLOBIN 13.7 g/dL (13.5-17.0); LYMPHOCYTES % (AUTO) 37.5 % (13-45); MEAN CORPUSCULAR HEMOGLOBIN 29.7 pg (27.0-33.4); MEAN CORPUSCULAR HGB CONC 36.2 g/dL (32.0-36.0); MEAN CORPUSCULAR VOLUME 82 fl (80-97); PLATELET COUNT 154 10^3/uL (150-450); RED BLOOD COUNT 4.63 10^6/uL (4.35-5.55); RED CELL DISTRIBUTION WIDTH 15.2 % (11.5-14.0); SEGMENTED NEUTROPHILS % (AUTO) 47.2 % (42-78); TOTAL CELLS COUNTED % (AUTO) 100 %
[2018-06-02 08:39] LABS: ANION GAP 6 (5-19); BLOOD UREA NITROGEN 9 mg/dL (7-20); CALCIUM 9.2 mg/dL (8.4-10.2); CARBON DIOXIDE 27 mmol/L (22-30); CHLORIDE 107 mmol/L (98-107); GLUCOSE 126 mg/dL (75-110); POTASSIUM 4.1 mmol/L (3.6-5.0); SODIUM 140.4 mmol/L (137-145)
[2018-06-02] MEDS: ENOXAPARIN SODIUM INJ 40 MG/0.4 ML DISP.SYRIN SUBCUT SCH (09:39)
--- NOTE | 2018-06-02 10:38 | PDOC PROGRESS REPORT ---
Subjective Progress Note for:: 06/02/18 Subjective:: Patient is currently doing well Patient CT angiogram is negative All cardiac workup is negative As per discussed with the Dr. Villarreal suggest to order the stress test Reason For Visit: CHEST PAIN Physical Exam Vital Signs: Temp Pulse Resp BP Pulse Ox 98.0 F 54 L 22 H 117/69 97 06/02/18 07:51 06/02/18 07:51 06/02/18 07:51 06/02/18 07:51 06/02/18 07:51 Intake & Output 06/01/18 06/02/18 06/03/18 06:59 06:59 06:59 Intake Total 650 Balance 650 Weight 112.3 kg General appearance: PRESENT: no acute distress, well-developed, well-nourished Head exam: PRESENT: atraumatic, normocephalic Eye exam: PRESENT: conjunctiva pink, EOMI, PERRLA. ABSENT: scleral icterus Ear exam: PRESENT: normal external ear exam Mouth exam: PRESENT: moist, tongue midline Neck exam: PRESENT: full ROM. ABSENT: carotid bruit, JVD, lymphadenopathy, thyromegaly Respiratory exam: PRESENT: clear to auscultation gloria Cardiovascular exam: PRESENT: RRR. ABSENT: diastolic murmur, rubs, systolic murmur Pulses: PRESENT: normal dorsalis pedis pul, +2 pedal pulses bilateral Vascular exam: PRESENT: normal capillary refill GI/Abdominal exam: PRESENT: normal bowel sounds, soft. ABSENT: distended, guarding, mass, organolmegaly, rebound, tenderness Rectal exam: PRESENT: deferred Musculoskeletal exam: PRESENT: ambulatory Neurological exam: PRESENT: alert, awake, oriented to person, oriented to place, oriented to time, oriented to situation, CN II-XII grossly intact. ABSENT: motor sensory deficit Psychiatric exam: PRESENT: appropriate affect, normal mood. ABSENT: homicidal ideation, suicidal ideation Skin exam: PRESENT: dry, intact, warm. ABSENT: cyanosis, rash Results Laboratory Results: 06/02/18 07:55 06/02/18 07:55 06/01/18 06/01/18 06/02/18 11:56 11:56 07:55 WBC 7.7 5.0 RBC 5.01 4.63 Hgb 15.0 13.7 Hct 41.2 38.0 MCV 82 82 MCH 30.0 29.7 MCHC 36.5 H 36.2 H RDW 15.1 H 15.2 H Plt Count 182 154 Seg Neutrophils % 37.1 L 47.2 Lymphocytes % 49.1 H 37.5 Monocytes % 10.1 11.0 Eosinophils % 3.6 4.1 Basophils % 0.1 0.2 Absolute Neutrophils 2.9 2.3 Absolute Lymphocytes 3.8 1.9 Absolute Monocytes 0.8 0.5 Absolute Eosinophils 0.3 0.2 Absolute Basophils 0.0 0.0 Sodium 140.4 Potassium 4.4 Chloride 105 Carbon Dioxide 27 Anion Gap 8 BUN 11 Creatinine 0.86 Est GFR ( Amer) > 60 Est GFR (Non-Af Amer) > 60 Glucose 119 H Calcium 9.2 Total Bilirubin 0.6 AST 37 ALT 26 Alkaline Phosphatase 116 Total Protein 7.5 Albumin 4.4 06/02/18 07:55 WBC RBC Hgb Hct MCV MCH MCHC RDW Plt Count Seg Neutrophils % Lymphocytes % Monocytes % Eosinophils % Basophils % Absolute Neutrophils Absolute Lymphocytes Absolute Monocytes Absolute Eosinophils Absolute Basophils Sodium 140.4 Potassium 4.1 Chloride 107 Carbon Dioxide 27 Anion Gap 6 BUN 9 Creatinine 0.81 Est GFR ( Amer) > 60 Est GFR (Non-Af Amer) > 60 Glucose 126 H Calcium 9.2 Total Bilirubin AST ALT Alkaline Phosphatase Total Protein Albumin 06/01/18 06/01/18 06/01/18 11:56 19:46 19:46 Creatine Kinase 974 H CK-MB (CK-2) Troponin I < 0.012 < 0.012 06/01/18 06/02/18 06/02/18 19:46 01:46 01:46 Creatine Kinase 802 H CK-MB (CK-2) 1.77 1.37 Troponin I 06/02/18 06/02/18 06/02/18 01:46 07:55 07:55 Creatine Kinase 689 H CK-MB (CK-2) 1.18 Troponin I < 0.012 Impressions: Chest/Abdomen CTA 06/01/18 00:00 IMPRESSION: NORMAL CTA OF THE CHEST. NO PULMONARY EMBOLI. Chest X-Ray 06/01/18 12:24 IMPRESSION: NO ACUTE RADIOGRAPHIC FINDING IN THE CHEST. Assessment & Plan - Diagnosis (1) Chest pain Qualifiers: Chest pain type: unspecified Qualified Code(s): R07.9 - Chest pain, unspecified Is this a current diagnosis for this admission?: Yes Plan: Currently doing well as per cardiology scheduled for the stress test tomorrow (2) Atrial flutter Qualifiers: Atrial flutter type: unspecified Qualified Code(s): I48.92 - Unspecified atrial flutter Is this a current diagnosis for this admission?: Yes Plan: Continues to current medications (3) Tobacco abuse Is this a current diagnosis for this admission?: Yes Plan: Discussed with the patient about smoking counseling (4) Hypertension Qualifiers: Hypertension type: essential hypertension Qualified Code(s): I10 - Essh[place] tial (primary) hypertension Is this a current diagnosis for this admission?: Yes Plan: List of current medications - Time Time Spent with patient: 15-24 minutes Medications reviewed and adjusted accordingly: Yes Anticipated discharge: Home Within: within 24 hours - Plan Summary Plan Summary: Scheduled a stress test tomorrow as per cardiology
[2018-06-02] MEDS: AMLODIPINE BESYLATE 5 MG TABLET PO SCH (13:49)
[2018-06-02] MEDS: ASPIRIN 81 MG TABLET, CHEWABLE PO SCH (13:50)
--- NOTE | 2018-06-02 21:39 | PDOC CONSULTATION ---
Consultation-Blank Consultation: CARDIOLOGY CONSULTATION by Dr. Promise Villarreal on 06/02/2017. Patient seen at 11 AM on 06/02/2018. REASON FOR CONSULTATION: Chest pain. HISTORY PRESENT ILLNESS: Patient is a pleasant 62-year-old Afro-Fijian male, who was admitted with chest pain. The patient states the chest pain started yesterday. And is been continuous. He states it is reproducible when I press on his left front of the chest and also when he extends his left pectoral muscle and shoulder backwards it reproduces the pain. He states he was given sublingual nitroglycerin x2, which did not really help his chest pain. Hence is clearly noncardiac and musculoskeletal. He denies any shortness of breath or PND orthopnea. There is no palpitations. There is no leg edema. There is no syncope. There is no cough or sputum production. Of note the patient does not recollect lifting any heavy weights or moving heavy objects. He cannot remember any situation that led to muscular structures strain of his pectoral muscle. PAST MEDICAL HISTORY: The patient was admitted here in October 2016 with elevated lipase levels and was diagnosed with pancreatitis. At that time his he had a had atrial flutter. Now the patient is in sinus rhythm. At that time he was not thought to be a candidate for anticoagulation in view of the fact that the patient had acute pancreatitis. He denies history of hypertension. There is no history of coronary artery disease or NH or anginal symptoms. No history of congestive heart failure. No history of palpitations or cardiac arrhythmia. No history of syncope or sudden . No history of diabetes mellitus or thyroid disease. No history of COPD or asthma. No history of sleep apnea. No history of TIA CVA. No history of anxiety or depression. Note in October 2016 CAT scan showed a 1.8 cm solid mass in the right cortical kidney. It is not clear whether this has been followed up. He has a history of arthritis. PAST SURGICAL HISTORY: He has had orthopedic surgery in his right leg. FAMILY HISTORY: Is negative for coronary artery disease or sudden . There is no major medical illness in the family. ALLERGIES: No known allergies. SOCIAL HISTORY: The patient smokes cigarettes. There is no history of EtOH abuse DISPOSITION: The patient is a full code. His sister is his surrogate healthcare decision maker REVIEW SYSTEMS: CONSTITUTIONAL: The patient denies any fever chills or rigors, denies generalized weakness but does have some fatigue. HEAD: Denies headaches or head injury. EYES: There is no amblyopia diplopia, and no amaurosis fugax. EARS: No hearing loss, no tinnitus or vertigo. NOSE: No history of hayfever, no nosebleeds, and no nasal polyps. MOUTH: No altered taste sensation, no ulcers in the mouth and no bleeding from the gums. THROAT: No odynophagia or dysphagia, no recurrent sore throats. SKIN: There is no pruritus no no elevation discoloration of the skin, and no eczema. LUNGS: No history of asthma COPD, history of pneumonia in April. Treated and cured as per patient. No history of sleep apnea. No history of pulmonary embolism. No pleuritic chest pain no hemoptysis. No wheezing or cough or sputum production. HEART: He has no history of CAD, NH or anginal symptoms, and no history of hypertension hyperlipidemia. The patient's chest pain symptoms are diagnostic of chest wall pain, which is reproducible by pressing on the chest and with movements of the left pectoral muscle. He denies palpitations or syncope. There is no history of congenital heart disease or rheumatic heart disease. GI: No history of fatty food intolerance no abdominal pain, no cirrhosis. No GI bleed. No altered bowel movements. ENDOCRINE: No history of diabetes mellitus or thyroid disease. No history of polydipsia polyuria, no history of heat or cold intolerance. MUSCULOSKELETAL: Has a history of arthritis, but no disabling symptoms, and no history of collagen vascular disease. RENAL: No symptoms of enlarged prostate. No history of chronic kidney disease. No symptoms of UTI. No history of hematuria pyuria or dysuria. History of solid mass in the right cortex of the right kidney diagnosed by CAT scan in 11/16. METABOLIC: History of morbid obesity present and history of hyperlipidemia. No history of gout. 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 No history of migraines or seizures. No history of gait imbalance. PSYCHIATRIC: No history of anxiety or depression. No history of suicidal ideation or homicidal ideation. VASCULAR: No history of calf or buttock claudication, no history of DVT. HEMATOLOGICAL: No history of bleeding diathesis or or clotting disorders, and no history of anemia. PHYSICAL EXAMINATION: The patient is mildly obese, but well-groomed. In no acute distress. 06/02/18 11:11 Temperature 98.5 F Temperature Oral Source Pulse Rate 58 L Respiratory 18 Rate Blood Pressure 150/89 H Blood Pressure 109 Mean BP Location Right Arm BP Position Supine O2 Sat by Pulse 97 Oximetry Oxygen Delivery Room Air Method HEAD: Atraumatic, normocephalic. EYES: Pupils equal round and reactive to light, extraocular movements intact, sclera anicteric, conjunctiva are normal. ENT: TMs normal, nares patent, oropharynx clear without exudates. Moist mucous membranes. NECK: Normal range of motion, supple without lymphadenopathy or JVD. LUNGS: Breath sounds clear to auscultation bilaterally and equal. No wheezes rales or rhonchi. There is no chest wall tenderness HEART: S1-S2 is heard. S1 is of normal intensity. There is no S3 gallop. There is no S4 gallop. There is systolic murmur left sternal border and the apex, there is no rub ABDOMEN: Soft, nontender, normoactive bowel sounds. No guarding, no rebound. No masses appreciated. EXTREMITIES: Normal range of motion, no pitting or edema. No clubbing or cyanosis. NEUROLOGICAL: Cranial nerves II through XII grossly intact. Normal speech, normal gait. There is subtle weakness in the left hand supervisor general. Sensations are normal bilaterally. PSYCH: Normal mood, normal affect. His judgment and insight are intact SKIN: Warm, Dry, normal turgor, no rashes or lesions noted. Chest X-ray: Is negative: The patient EKG shows sinus bradycardia, LVH by voltage. Probable left atrial abnormality. His pulmonary CTA is negative for PE. Current Medications Generic Name Dose Route Start Last Admin Trade Name Freq PRN Reason Stop Dose Admin Acetaminophen 650 mg 06/01/18 13:47 Tylenol 325 Mg Tablet PO 07/01/18 13:46 Q4HP PRN FOR PAIN OR TEMP Amlodipine Besylate 5 mg 06/02/18 13:00 06/02/18 13:49 Norvasc 5 Mg Tablet PO 07/02/18 12:59 5 mg DAILY NEETU Administration STARTED BY ME No Home Medications 06/01/18 Aspirin 81 mg 06/02/18 13:00 06/02/18 13:50 Aspirin 81 Mg Chewable Tablet PO 07/02/18 12:59 81 mg DAILY NEETU Administration STARTED BY ME. Enoxaparin Sodium 40 mg 06/01/18 15:00 06/02/18 09:39 Lovenox Inj 40 Mg/0.4 Ml Disp.Syrin SUBCUT 07/01/18 14:59 40 mg DAILY NEETU Administration Lansoprazole 15 mg 06/01/18 17:00 06/02/18 17:01 Prevacid 15 Mg Odt Tablet PO 07/01/18 16:59 15 mg BID@0600,1700 NEETU Administration Patient not on any home medications. Labs- Entire Visit 06/01/18 06/01/18 06/01/18 11:56 11:56 11:56 WBC 7.7 RBC 5.01 Hgb 15.0 Hct 41.2 MCV 82 MCH 30.0 MCHC 36.5 H RDW 15.1 H Plt Count 182 Seg Neutrophils % 37.1 L Lymphocytes % 49.1 H Monocytes % 10.1 Eosinophils % 3.6 Basophils % 0.1 Absolute Neutrophils 2.9 Absolute Lymphocytes 3.8 Absolute Monocytes 0.8 Absolute Eosinophils 0.3 Absolute Basophils 0.0 Sodium 140.4 Potassium 4.4 Chloride 105 Carbon Dioxide 27 Anion Gap 8 BUN 11 Creatinine 0.86 Est GFR ( Amer) > 60 Est GFR (Non-Af Amer) > 60 Glucose 119 H Calcium 9.2 Total Bilirubin 0.6 Direct Bilirubin 0.2 Neonat Total Bilirubin Not Reportable Neonat Direct Bilirubin Not Reportable Neonat Indirect Bili Not Reportable AST 37 ALT 26 Alkaline Phosphatase 116 Creatine Kinase CK-MB (CK-2) Troponin I < 0.012 Total Protein 7.5 Albumin 4.4 06/01/18 06/01/18 06/01/18 19:46 19:46 19:46 WBC RBC Hgb Hct MCV MCH MCHC RDW Plt Count Seg Neutrophils % Lymphocytes % Monocytes % Eosinophils % Basophils % Absolute Neutrophils Absolute Lymphocytes Absolute Monocytes Absolute Eosinophils Absolute Basophils Sodium Potassium Chloride Carbon Dioxide Anion Gap BUN Creatinine Est GFR ( Amer) Est GFR (Non-Af Amer) Glucose Calcium Total Bilirubin Direct Bilirubin Neonat Total Bilirubin Neonat Direct Bilirubin Neonat Indirect Bili AST ALT Alkaline Phosphatase Creatine Kinase 974 H CK-MB (CK-2) 1.77 Troponin I < 0.012 Total Protein Albumin 06/02/18 06/02/18 06/02/18 01:46 01:46 01:46 WBC RBC Hgb Hct MCV MCH MCHC RDW Plt Count Seg Neutrophils % Lymphocytes % Monocytes % Eosinophils % Basophils % Absolute Neutrophils Absolute Lymphocytes Absolute Monocytes Absolute Eosinophils Absolute Basophils Sodium Potassium Chloride Carbon Dioxide Anion Gap BUN Creatinine Est GFR ( Amer) Est GFR (Non-Af Amer) Glucose Calcium Total Bilirubin Direct Bilirubin Neonat Total Bilirubin Neonat Direct Bilirubin Neonat Indirect Bili AST ALT Alkaline Phosphatase Creatine Kinase 802 H CK-MB (CK-2) 1.37 Troponin I < 0.012 Total Protein Albumin 06/02/18 06/02/18 06/02/18 07:55 07:55 07:55 WBC 5.0 RBC 4.63 Hgb 13.7 Hct 38.0 MCV 82 MCH 29.7 MCHC 36.2 H RDW 15.2 H Plt Count 154 Seg Neutrophils % 47.2 Lymphocytes % 37.5 Monocytes % 11.0 Eosinophils % 4.1 Basophils % 0.2 Absolute Neutrophils 2.3 Absolute Lymphocytes 1.9 Absolute Monocytes 0.5 Absolute Eosinophils 0.2 Absolute Basophils 0.0 Sodium Potassium Chloride Carbon Dioxide Anion Gap BUN Creatinine Est GFR ( Amer) Est GFR (Non-Af Amer) Glucose Calcium Total Bilirubin Direct Bilirubin Neonat Total Bilirubin Neonat Direct Bilirubin Neonat Indirect Bili AST ALT Alkaline Phosphatase Creatine Kinase 689 H CK-MB (CK-2) 1.18 Troponin I Total Protein Albumin 06/02/18 07:55 WBC RBC Hgb Hct MCV MCH MCHC RDW Plt Count Seg Neutrophils % Lymphocytes % Monocytes % Eosinophils % Basophils % Absolute Neutrophils Absolute Lymphocytes Absolute Monocytes Absolute Eosinophils Absolute Basophils Sodium 140.4 Potassium 4.1 Chloride 107 Carbon Dioxide 27 Anion Gap 6 BUN 9 Creatinine 0.81 Est GFR ( Amer) > 60 Est GFR (Non-Af Amer) > 60 Glucose 126 H Calcium 9.2 Total Bilirubin Direct Bilirubin Neonat Total Bilirubin Neonat Direct Bilirubin Neonat Indirect Bili AST ALT Alkaline Phosphatase Creatine Kinase CK-MB (CK-2) Troponin I Total Protein Albumin Chest/Abdomen CTA 06/01/18 00:00 IMPRESSION: NORMAL CTA OF THE CHEST. NO PULMONARY EMBOLI. Chest X-Ray 06/01/18 12:24 IMPRESSION: NO ACUTE RADIOGRAPHIC FINDING IN THE CHEST. IMPRESSION/RECOMMENDATION: 1. CHEST PAIN: Noncardiac chest wall pain. Next 2. Borderline hypertension. 3. Past history of one episode of atrial flutter: No clinical recurrence. Patient has no symptoms of palpitations. Next 4. Tobacco abuse disorder.: Tobacco cessation counseling given 3 minutes spent on this. 5. Systolic murmur:? Mitral regurg.? Severity. 6. History of right renal cortical mass which is supposed to be a solid mass: We will asked Dr. Mao about follow-up of this. 7. The patient's CAD risk factors are the patient's age, and tobacco abuse, and borderline hypertension.? Lipid status. Will check the patient's lipid status in the a.m. RECOMMENDATION: Would recommend that the patient be started on enteric-coated aspirin 81 mg p.o. daily, and also start the patient on amlodipine 5 mg p.o. daily for his blood pressure. Would recommend that the patient have an outpatient EKG treadmill stress test, since the patient EKG is within normal limits. Also will get an echo, to assess the systolic murmur, and also would recommend that the patient have a 30-day event monitor to see if there is recurrence of atrial flutter. Medications reviewed and medications adjusted. 60 minutes spent on this patient with more than 50% of time spent on direct patient care. Medical decision melva walden is of moderate to high complexity. Discussed with attending physician the management plan. Would recommend discharge the patient in the morning. The patient desires to follow-up with me in the office. Contact numbers given. Will sign off.
--- NOTE | 2018-06-02 22:50 | EKG REPORT ---
SEVERITY:- ABNORMAL ECG - SINUS RHYTHM VENTRICULAR ECTOPICS LEFT ATRIAL ABNORMALITY : Confirmed by: Shannon Crocker 02-Jun-2018 22:50:11
[2018-06-03] MEDS: LANSOPRAZOLE 15 MG TAB.RAP.DR PO SCH ×2 (05:03→17:01)
[2018-06-03 06:19] LABS: ABSOLUTE EOSINOPHILS # (AUTO) 0.2 10^3/uL (0.0-0.6); ABSOLUTE LYMPHOCYTES (AUTO) 2.1 10^3/uL (0.5-4.7); ABSOLUTE MONOCYTES (AUTO) 0.7 10^3/uL (0.1-1.4); BASOPHILS % (AUTO) 0.3 % (0-2); EOSINOPHILS % (AUTO) 3.3 % (0-6); HEMATOCRIT 38.8 % (37.9-51.0); HEMOGLOBIN 14.2 g/dL (13.5-17.0); LYMPHOCYTES % (AUTO) 35.1 % (13-45); MEAN CORPUSCULAR HEMOGLOBIN 29.9 pg (27.0-33.4); MEAN CORPUSCULAR HGB CONC 36.6 g/dL (32.0-36.0); MEAN CORPUSCULAR VOLUME 82 fl (80-97); MONOCYTES % (AUTO) 11.2 % (3-13); PLATELET COUNT 156 10^3/uL (150-450); RED BLOOD COUNT 4.76 10^6/uL (4.35-5.55); RED CELL DISTRIBUTION WIDTH 15.3 % (11.5-14.0); SEGMENTED NEUTROPHILS % (AUTO) 50.1 % (42-78); TOTAL CELLS COUNTED % (AUTO) 100 %; WHITE BLOOD COUNT 5.9 10^3/uL (4.0-10.5)
[2018-06-03 06:34] LABS: ANION GAP 8 (5-19); BLOOD UREA NITROGEN 9 mg/dL (7-20); CALCIUM 9.2 mg/dL (8.4-10.2); CARBON DIOXIDE 28 mmol/L (22-30); CHLORIDE 105 mmol/L (98-107); CHOLESTEROL 140.76 mg/dL (0-200); GLUCOSE 110 mg/dL (75-110); POTASSIUM 4.1 mmol/L (3.6-5.0); TRIGLYCERIDES 59 mg/dL (<150)
[2018-06-03 06:45] LABS: DIRECT LDL 83 mg/dL (<100)
[2018-06-03] MEDS: AMLODIPINE BESYLATE 5 MG TABLET PO SCH (09:17)
[2018-06-03] MEDS: ASPIRIN 81 MG TABLET, CHEWABLE PO SCH (09:17)
[2018-06-03] MEDS: ENOXAPARIN SODIUM INJ 40 MG/0.4 ML DISP.SYRIN SUBCUT SCH (09:17)
[2018-06-03 17:27] VITALS: BP 133/76
--- NOTE | 2018-06-03 18:47 | PDOC DISCHARGE SUMMARY ---
General - Admit/Disc Date/PCP Admission Date/Primary Care Provider: 06/01/18 13:47 ROMULO LOZADA MD Discharge Date: 06/03/18 - Discharge Diagnosis (1) Chest pain Is this a current diagnosis for this admission?: Yes (2) Neoplasm of uncertain behavior of right kidney Is this a current diagnosis for this admission?: Yes - Additional Information Resuscitation Status: Full Code Discharge Diet: Cardiac Discharge Activity: Activity As Tolerated, Balance Activity w/Rest Home Medications: Acetaminophen [Tylenol 325 mg Tablet] 650 mg PO Q4HP PRN tablet 06/03/18 Amlodipine Besylate [Norvasc 5 mg Tablet] 5 mg PO DAILY tablet 06/03/18 Aspirin [Aspirin 81 mg Chewable Tablet] 81 mg PO DAILY tab.chew 06/03/18 Lansoprazole [Prevacid 15 mg Odt Tablet] 15 mg PO BID@0600,1700 tab.rap. 06/03/18 History of Present Illness History of Present Illness: ALBERT MONGE is a 62 year old male, He was admitted for evaluation of left sided chest pain Hospital Course Hospital Course: Patient was admitted for evaluation and management of left-sided chest pain, CTA chest was done, this was negative for pulmonary embolism, he was seen by Dr. Villarreal, cardiology, the chest pain is felt to be noncardiac/chest wall pain, the chest pain is reproducible on palpation of the chest. He has a neoplasm of the right kidney diagnosed 2 years ago, he follows with [place] [facility] for this condition was supposed to have surgery last month but he postponed his surgery until next month July because he said he has no family or friends to get him to [place] and back from [place] to [place], [place] Physical Exam Vital Signs: Temp Pulse Resp BP Pulse Ox 98.7 F 62 16 133/76 H 99 06/03/18 17:26 06/03/18 17:26 06/03/18 17:26 06/03/18 17:26 06/03/18 17:26 Intake & Output 06/02/18 06/03/18 06/04/18 06:59 06:59 06:59 Intake Total 650 1733 829 Balance 650 1733 829 Weight 112.3 kg 110.4 kg General appearance: PRESENT: no acute distress, well-developed, well-nourished Head exam: PRESENT: atraumatic, normocephalic Eye exam: PRESENT: conjunctiva pink, EOMI, PERRLA Ear exam: PRESENT: normal external ear exam Mouth exam: PRESENT: moist, tongue midline Neck exam: PRESENT: full ROM Respiratory exam: PRESENT: clear to auscultation gloria Cardiovascular exam: PRESENT: RRR, +S1, +S2 Pulses: PRESENT: normal dorsalis pedis pul, +2 pedal pulses bilateral Vascular exam: PRESENT: normal capillary refill GI/Abdominal exam: PRESENT: normal bowel sounds, soft Rectal exam: PRESENT: deferred Neurological exam: PRESENT: alert, awake, oriented to person, oriented to place, oriented to time, oriented to situation, CN II-XII grossly intact Psychiatric exam: PRESENT: appropriate affect, normal mood Skin exam: PRESENT: dry, intact, warm. ABSENT: cyanosis, rash Results Laboratory Results: 06/03/18 05:19 06/03/18 05:19 06/03/18 06/03/18 05:19 05:19 WBC 5.9 RBC 4.76 Hgb 14.2 Hct 38.8 MCV 82 MCH 29.9 MCHC 36.6 H RDW 15.3 H Plt Count 156 Seg Neutrophils % 50.1 Lymphocytes % 35.1 Monocytes % 11.2 Eosinophils % 3.3 Basophils % 0.3 Absolute Neutrophils 3.0 Absolute Lymphocytes 2.1 Absolute Monocytes 0.7 Absolute Eosinophils 0.2 Absolute Basophils 0.0 Sodium 141.0 Potassium 4.1 Chloride 105 Carbon Dioxide 28 Anion Gap 8 BUN 9 Creatinine 0.86 Est GFR ( Amer) > 60 Est GFR (Non-Af Amer) > 60 Glucose 110 Calcium 9.2 Triglycerides 59 Cholesterol 140.76 LDL Cholesterol Direct 83 VLDL Cholesterol 12.0 HDL Cholesterol 47 06/01/18 06/01/18 06/01/18 11:56 19:46 19:46 Creatine Kinase 974 H CK-MB (CK-2) Troponin I < 0.012 < 0.012 06/01/18 06/02/18 06/02/18 19:46 01:46 01:46 Creatine Kinase 802 H CK-MB (CK-2) 1.77 1.37 Troponin I 06/02/18 06/02/18 06/02/18 01:46 07:55 07:55 Creatine Kinase 689 H CK-MB (CK-2) 1.18 Troponin I < 0.012 Impressions: Chest/Abdomen CTA 06/01/18 00:00 IMPRESSION: NORMAL CTA OF THE CHEST. NO PULMONARY EMBOLI. Chest X-Ray 06/01/18 12:24 IMPRESSION: NO ACUTE RADIOGRAPHIC FINDING IN THE CHEST. Qualifiers - * PATIENT BEING DISCHARGED WITH ANY OF THE FOLLOWING DIAGNOSIS: No
--- NOTE | 2018-06-05 01:28 | EKG REPORT ---
SEVERITY:- ABNORMAL ECG - SINUS RHYTHM LEFT VENTRICULAR HYPERTROPHY : Confirmed by: Promise Villarreal MD 05-Jun-2018 01:28:14
== END 2018-06-03 18:12 | disposition home or self-care (01) | DRG 313 ==
LOC: ER 12:07 → EH 13:42 → OBSVTOIN 13:47 → 4S 14:52
PROVIDERS: ADMIT Internal Medicine; ATTEND Internal Medicine
DX: R07.89 Other chest pain (principal); I48.92 Unspecified atrial flutter; E78.5 Hyperlipidemia, unspecified; E66.9 Obesity, unspecified; I10 Essential (primary) hypertension; D49.511 Neoplasm of unspecified behavior of right kidney; M19.90 Unspecified osteoarthritis, unspecified site; F17.210 Nicotine dependence, cigarettes, uncomplicated; R53.83 Other fatigue; Z79.82 Long term (current) use of aspirin; Z87.01 Personal history of pneumonia (recurrent); Z68.30 Body mass index [BMI] 30.0-30.9, adult
CPT/HCPCS: 36415; 71045; 71275; 80048; 80053; 80061; 82550; 82553; 84484; 85025; 93005; 93010; 99285; J1650

== ENCOUNTER → 2018-09-27 | Outpatient (CLI) | payer OTHER ==
--- NOTE | 2018-09-27 16:43 | RADIOLOGY REPORT (SQ) ---
EXAM DESCRIPTION: HIPS BILATERAL COMPLETED DATE/TIME: 09/27/2018 4:35 pm REASON FOR STUDY: PAIN IN LEFT HIP M25.552 PAIN IN LEFT HIP COMPARISON: None. NUMBER OF VIEWS: Two views TECHNIQUE: AP pelvis and additional frog-leg view of both hips. LIMITATIONS: None. FINDINGS: MINERALIZATION: Normal. HIPS: No acute fracture or dislocation. Mild joint space narrowing with sclerosis and small osteophy desean. No worrisome bone lesions. PELVIS AND SACRUM: No acute fracture or dislocation. No worrisome bone lesions. PUBIS AND ISCHIUM: No acute fracture. LOWER LUMBAR SPINE: No significant findings as visualized. SOFT TISSUES: No findings. OTHER: No other significant finding. IMPRESSION: MILD DEGENERATIVE JOINT DISEASE. NO ACUTE FINDINGS. TECHNICAL DOCUMENTATION: JOB ID: [id number] [employer]- All Rights Reserved Reading location - IP/workstation name: [email or web address]
== END ==
LOC: OD 16:19
PROVIDERS: ATTEND Internal Medicine
DX: M25.552 Pain in left hip (principal)
CPT/HCPCS: 73522

== ENCOUNTER → 2018-10-28 | Day surgery (SDC) | payer OTHER ==
[~2018-10-28] MED LIST: BUPIVACAINE HCL 0.5 % INJ/PF 30 ML SDV ONE; LIDOCAINE 1% INJ-PF (10 MG/ML) 30 ML SDV ONE; METHYLPREDNISOLONE ACETATE INJ 80 MG/1 ML VIAL ONE
--- NOTE | 2018-10-28 16:21 | RADIOLOGY REPORT (SQ) ---
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 FLUOROSCOPY TIME: 21 seconds. 1 images saved to PACS. LIMITATIONS: None. PROCEDURE: SITE OF INJECTION: Left hip. LOCALIZING CONTRAST TYPE AND DOSE: 1 mL Omnipaque. MEDICATION TYPE AND DOSE: 5 mL 0.5% bupivacaine and 80 mg Depo-Medrol. Using local anesthesia and sterile technique with fluoroscopic guidance, the needle was advanced into the joint. Iodinated contrast was injected to verify intraarticular placement. This was followed by therapeutic injection of the indicated medications. The needle was removed. There were no immediat e complications. Preprocedure pain level: 5/5. Postprocedure pain level: 0/5. IMPRESSION: THERAPEUTIC INJECTION OF THE LEFT HIP JOINT ABOVE. COMMENT: Patient medication list reviewed: Yes- Quality ID# [id number]:Eligible professional attests to doc umenting in the medical record they obtained, updated, or reviewed the patient's current medications. . Quality ID 145: Final reports for procedures using fluoroscopy that document radiation exposure liban katharine, or exposure time and number of fluorographic images (if radiation exposure indices are not avail able) TECHNICAL DOCUMENTATION: JOB ID: [id number] [email or web address]- All Rights Reserved Reading location - IP/workstation name: [email or web address]
--- NOTE | 2018-10-28 16:22 | RADIOLOGY REPORT (SQ) ---
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 FLUOROSCOPY TIME: 21 seconds. 1 images saved to PACS. LIMITATIONS: None. PROCEDURE: SITE OF INJECTION: Left hip. LOCALIZING CONTRAST TYPE AND DOSE: 1 mL Omnipaque. MEDICATION TYPE AND DOSE: 5 mL 0.5% bupivacaine and 80 mg Depo-Medrol. Using local anesthesia and sterile technique with fluoroscopic guidance, the needle was advanced into the joint. Iodinated contrast was injected to verify intraarticular placement. This was followed by therapeutic injection of the indicated medications. The needle was removed. There were no immediat e complications. Preprocedure pain level: 5/5. Postprocedure pain level: 0/5. IMPRESSION: THERAPEUTIC INJECTION OF THE LEFT HIP JOINT ABOVE. COMMENT: Patient medication list reviewed: Yes- Quality ID# [id number]:Eligible professional attests to doc umenting in the medical record they obtained, updated, or reviewed the patient's current medications. . Quality ID 145: Final reports for procedures using fluoroscopy that document radiation exposure liban katharine, or exposure time and number of fluorographic images (if radiation exposure indices are not avail able) TECHNICAL DOCUMENTATION: JOB ID: [id number] [employer]- All Rights Reserved Reading location - IP/workstation name: [email or web address]
== END ==
LOC: RAD 12:47
PROVIDERS: ATTEND Orthopaedic Surgery Sports Medicine
DX: M16.12 Unilateral primary osteoarthritis, left hip (principal)
CPT/HCPCS: 20610; 77002; J3490 ×2; J1040

== ENCOUNTER 2018-10-30 13:51 | Emergency (ER) | payer OTHER ==
--- NOTE | 2018-10-30 15:25 | ER Document Report ---
ED Medical Screen (RME) - General Stated Complaint: BLOOD PRESSURE PROBLEM Time Seen by Provider: 10/30/18 15:10 Primary Care Provider: ROMULO LOZADA MD [Primary Care Provider] - Follow up as needed Mode of Arrival: Ambulatory Information source: Patient TRAVEL OUTSIDE OF THE [place] IN LAST 30 DAYS: No - HPI Notes: 10/30/18 15:25 P3-year-old male presents to the ED with a medical history of a-fib, currently on Eliquis and tramadol for osteoarthritis for complaints of dizziness, palpitations, nausea and shortness of breath. Onset approximately 3 hours ago while at work. Patient states he has blood pressure checked at his place of work, blood pressure was recorded 200/140, blood pressure well presenting the ED today is 141/76 patient's PCP is Dr. Lozada. Patient does not take a beta- maryjane or rate controlling medication. Is not seen by her lead software development engineer. Patient did have a intra-articular joint injection of his hip approximately 2 days ago done [facility]. Denies any recent trauma. No new medications or travel. Eating and drinking without any issues. Denies fevers, chills, cvomiting, diarrhea, abdominal pain, hematuria,blurred vision, double vision, loss of vision, speech changes, wheezing, ST, URI, neck pain, weakness, bowel or bladder dysfunction, saddle anesthesia, numbness or tingling in bilateral upper or lower extremities equally, muscle paralysis, weakness in bilateral upper or lower extremities equally or rash. ROS: Other than noted above, the 12 point review of systems was reviewed with the patient and were negative, all pertinent findings are included in the HPI. PHYSICAL EXAMINATION: Vital signs reviewed. GENERAL: Well-appearing, well-nourished and in no acute distress. HEAD: Atraumatic, normocephalic. NECK: Normal range of motion CV: irregular, S1 S2, tachycardia LUNGS: No respiratory distress Musculoskeletal: Normal range of motion NEUROLOGICAL: Normal speech PSYCH: Normal mood, normal affect. MDM: Patient seen and examined for rapid initial assessment. Vital signs reviewed. A comprehensive ED assessment and evaluation of the patient, analysis of test results and completion of the medical decision making process will be conducted by additional ED providers. *Note is created using voice recognition software and may contain spelling, syntax or grammatical errors. - Related Data Allergies/Adverse Reactions: No Known Allergies Allergy (Verified 06/01/18 12:23) Past Medical History - Past Medical History Cardiac Medical History: Reports: Hx Atrial Fibrillation Denies: Hx Coronary Artery Disease, Hx Heart Attack, Hx Hypertension Pulmonary Medical History: Denies: Hx Asthma, Hx Bronchitis, Hx COPD, Hx Pneumonia, Hx Tuberculosis Neurological Medical History: Denies: Hx Cerebrovascular Accident, Hx Seizures Renal/ Medical History: Denies: Hx Peritoneal Dialysis Musculoskeltal Medical History: Reports Hx Arthritis Past Surgical History: Reports: Hx Orthopedic Surgery - right leg. Denies: Hx Pacemaker - Immunizations Hx Diphtheria, Pertussis, Tetanus Vaccination: Yes Physical Exam - Vital signs Vitals: Temp Pulse Resp BP Pulse Ox 97.9 F 101 H 20 145/76 H 96 10/30/18 14:02 10/30/18 14:02 10/30/18 14:02 10/30/18 14:02 10/30/18 14:02 Course - Vital Signs Vital signs: Temp Pulse Resp BP Pulse Ox 97.9 F 101 H 20 145/76 H 96 10/30/18 14:02 10/30/18 14:02 10/30/18 14:02 10/30/18 14:02 10/30/18 14:02 Doctor's Discharge - Discharge Referrals: ROMULO LOZADA MD [Primary Care Provider] - Follow up as needed
[2018-10-30 15:51] LABS: ABSOLUTE EOSINOPHILS # (AUTO) 0.1 10^3/uL (0.0-0.6); ABSOLUTE LYMPHOCYTES (AUTO) 3.3 10^3/uL (0.5-4.7); ABSOLUTE MONOCYTES (AUTO) 0.9 10^3/uL (0.1-1.4); ABSOLUTE NEUT (AUTO) 8.7 10^3/uL (1.7-8.2); BASOPHILS % (AUTO) 0.1 % (0-2); EOSINOPHILS % (AUTO) 0.6 % (0-6); HEMATOCRIT 40.8 % (37.9-51.0); HEMOGLOBIN 14.3 g/dL (13.5-17.0); INTERNATIONAL RATION (INR) 1.24; LYMPHOCYTES % (AUTO) 25.3 % (13-45); MEAN CORPUSCULAR HEMOGLOBIN 28.5 pg (27.0-33.4); MEAN CORPUSCULAR HGB CONC 34.9 g/dL (32.0-36.0); MEAN CORPUSCULAR VOLUME 82 fl (80-97); MONOCYTES % (AUTO) 6.8 % (3-13); PLATELET COUNT 174 10^3/uL (150-450); PROTHROMBIN TIME 15.7 SEC (11.4-15.4); RED CELL DISTRIBUTION WIDTH 15.3 % (11.5-14.0); SEGMENTED NEUTROPHILS % (AUTO) 67.2 % (42-78); TOTAL CELLS COUNTED % (AUTO) 100 %; WHITE BLOOD COUNT 12.9 10^3/uL (4.0-10.5)
[2018-10-30 15:52] LABS: PARTIAL THROMBOPLASTIN TIME 33.9 SEC (23.5-35.8)
[2018-10-30 16:06] LABS: ALANINE AMINOTRANSFERASE 15 U/L (21-72); ALBUMIN 4.4 g/dL (3.5-5.0); ALKALINE PHOSPHATASE 90 U/L (38-126); ANION GAP 9 (5-19); ASPARTATE AMINO TRANSFERASE 19 U/L (17-59); BILIRUBIN,DIRECT 0.3 mg/dL (0.0-0.4); BILIRUBIN,TOTAL 0.5 mg/dL (0.2-1.3); BLOOD UREA NITROGEN 17 mg/dL (7-20); CARBON DIOXIDE 28 mmol/L (22-30); CHLORIDE 103 mmol/L (98-107); CREATINE KINASE 223 U/L (55-170); GLUCOSE 93 mg/dL (75-110); POTASSIUM 3.7 mmol/L (3.6-5.0); TOTAL PROTEIN 7.3 g/dL (6.3-8.2)
--- NOTE | 2018-10-30 16:14 | RADIOLOGY REPORT (SQ) ---
EXAM DESCRIPTION: CHEST SINGLE VIEW COMPLETED DATE/TIME: 10/30/2018 4:06 pm REASON FOR STUDY: sob, dizzy COMPARISON: 06/01/2018 NUMBER OF VIEWS: One view. TECHNIQUE: Single frontal radiographic image of the chest acquired. LIMITATIONS: None. FINDINGS: LUNGS AND PLEURA: Stable appearance. MEDIASTINUM AND HILAR STRUCTURES: Stable heart size and mediastinal structures. HEART AND VASCULAR STRUCTURES: Stable appearance. SUPPORT DEVICES: Appropriate location without change. BONES: No acute findings. OTHER: No other significant finding. IMPRESSION: STABLE APPEARANCE OF THE CHEST. SUPPORT DEVICES UNCHANGED. TECHNICAL DOCUMENTATION: JOB ID: [id number] [email or web address]- All Rights Reserved Reading location - IP/workstation name: [email or web address]
[2018-10-30 16:16] LABS: CREATINE KINASE MB 1.73 ng/mL (<4.55)
[2018-10-30 16:18] LABS: TROPONIN I < 0.012 ng/mL
--- NOTE | 2018-10-30 16:21 | ER Document Report ---
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 Under a lot of stress. Today felt quite off. [place] like he was going to pass out. Did not. Did not have any seizures. Denies any chest pain. His blood pressure was noted to be quite high by the correction staff so sent here for further evaluation. He denies any chest pain at this time. Just feels like he is with his worn out. Take Eliquis for A. fib. Has been taking it recently. Smoke. Does not know his family history as he was adopted. TRAVEL OUTSIDE OF THE [place] IN LAST 30 DAYS: No - Related Data Allergies/Adverse Reactions: No Known Allergies Allergy (Verified 06/01/18 12:23) Past Medical History - General Information source: Patient - Social History Smoking Status: Current Every Day Smoker Cigarette use (# per day): Yes Frequency of alcohol use: None Drug Abuse: None Lives with: Family Family History: Other - Patient adopted. Father he thinks of cancer. Patient has suicidal ideation: No Patient has homicidal ideation: No - Past Medical History Cardiac Medical History: Reports: Hx Atrial Fibrillation, Hx Hypertension Denies: Hx Coronary Artery Disease, Hx Heart Attack Pulmonary Medical History: Denies: Hx Asthma, Hx Bronchitis, Hx COPD, Hx Pneumonia, Hx Tuberculosis Neurological Medical History: Denies: Hx Cerebrovascular Accident, Hx Seizures Renal/ Medical History: Denies: Hx Peritoneal Dialysis Musculoskeletal Medical History: Reports Hx Arthritis Past Surgical History: Reports: Hx Orthopedic Surgery - right leg. Denies: Hx Pacemaker - Immunizations Hx Diphtheria, Pertussis, Tetanus Vaccination: Yes Review of Systems - Review of Systems Notes: Constitutional: denies: Chills, Diaphoresis, Fever, Malaise, +Weakness EENT: denies: Eye discharge, Blurred vision, Tearing, Double vision, Nose congestion, Nose discharge, Throat swelling, Mouth pain Cardiovascular: Denies any chest pain but does have frequent palpitations. [place] like he was going to pass out but did not. Respiratory: denies: Cough, Hurts to breathe, Wheezing, Shortness of breath Gastrointestinal: denies: Abdominal pain, Diarrhea, Nausea, Vomiting, Black st ools, bright red blood in stool Genitourinary: denies: Burning, Dysuria, Discharge, Frequency, Flank pain, Hematuria Musculoskeletal: denies: Joint pain, Joint swelling, Muscle pain, Muscle stiffness, back pain Hematologic/Lymphatic: denies: Anemia, Easy bleeding, Easy bruising, Blood clots Neurological/Psychological: denies: Confusion, Dementia, Depression, Loss of consciousness Skin: No lesions, no masses, no skin breakdown, no abscesses Physical Exam - Vital signs Vitals: Temp Pulse Resp BP Pulse Ox 97.9 F 101 H 20 145/76 H 96 10/30/18 14:02 10/30/18 14:02 10/30/18 14:02 10/30/18 14:02 10/30/18 14:02 Interpretation: Bradycardic - General General appearance: Appears well, Alert - HEENT Head: Normocephalic, Atraumatic Eyes: Normal Pupils: PERRL - Respiratory Respiratory status: No respiratory distress Chest status: Nontender Breath sounds: Normal Chest palpation: Normal - Cardiovascular Rhythm: Regular, Bradycardia Heart sounds: Normal auscultation Murmur: No Notes: Frequent PVCs auscultated in trigeminy pattern. - Abdominal Inspection: Normal Distension: No distension Bowel sounds: Normal Tenderness: Nontender Organomegaly: No organomegaly - Back Back: Normal, Nontender - Extremities General upper extremity: Normal inspection, Nontender, Normal color, Normal ROM, Normal temperature General lower extremity: Normal inspection, Nontender, Normal color, Normal ROM, Normal temperature, Normal weight bearing. No: Arlette's sign - Neurological Neuro grossly intact: Yes Cognition: Normal Orientation: AAOx4 Wisdom Coma Scale Eye Opening: Spontaneous Wisdom Coma Scale Verbal: Oriented Alexander Coma Scale Motor: Obeys Commands Alexander Coma Scale Total: 15 Speech: Normal Motor strength normal: LUE, RUE, LLE, RLE Sensory: Normal - Psychological Associated symptoms: Normal affect, Normal mood - Skin Skin Temperature: Warm Skin Moisture: Dry Skin Color: Normal Course - Re-evaluation Re-evalutation: 10/30/18 17:00 Laboratory 10/30/18 10/30/18 10/30/18 15:30 15:30 15:30 WBC 12.9 H RBC 5.00 Hgb 14.3 Hct 40.8 MCV 82 MCH 28.5 MCHC 34.9 RDW 15.3 H Plt Count 174 Seg Neutrophils % 67.2 Lymphocytes % 25.3 Monocytes % 6.8 Eosinophils % 0.6 Basophils % 0.1 Absolute Neutrophils 8.7 H Absolute Lymphocytes 3.3 Absolute Monocytes 0.9 Absolute Eosinophils 0.1 Absolute Basophils 0.0 PT INR APTT D-Dimer Sodium 139.6 Potassium 3.7 Chloride 103 Carbon Dioxide 28 Anion Gap 9 BUN 17 Creatinine 0.98 Est GFR ( Amer) > 60 Est GFR (Non-Af Amer) > 60 Glucose 93 Calcium 9.0 Total Bilirubin 0.5 Direct Bilirubin 0.3 Neonat Total Bilirubin Not Reportable Neonat Direct Bilirubin Not Reportable Neonat Indirect Bili Not Reportable AST 19 ALT 15 L Alkaline Phosphatase 90 Creatine Kinase 223 H CK-MB (CK-2) 1.73 Troponin I < 0.012 Total Protein 7.3 Albumin 4.4 10/30/18 15:30 WBC RBC Hgb Hct MCV MCH MCHC RDW Plt Count Seg Neutrophils % Lymphocytes % Monocytes % Eosinophils % Basophils % Absolute Neutrophils Absolute Lymphocytes Absolute Monocytes Absolute Eosinophils Absolute Basophils PT 15.7 H INR 1.24 APTT 33.9 D-Dimer 0.30 Sodium Potassium Chloride Carbon Dioxide Anion Gap BUN Creatinine Est GFR ( Amer) Est GFR (Non-Af Amer) Glucose Calcium Total Bilirubin Direct Bilirubin Neonat Total Bilirubin Neonat Direct Bilirubin Neonat Indirect Bili AST ALT Alkaline Phosphatase Creatine Kinase CK-MB (CK-2) Troponin I Total Protein Albumin 10/30/18 17:46 Chest X-Ray 10/30/18 15:24 IMPRESSION: STABLE APPEARANCE OF THE CHEST. SUPPORT DEVICES UNCHANGED. 10/30/18 18:14 I did speak with Dr. Lozada. He will follow as an outpatient. Patient has no chest pain. His blood pressures come down nicely. His heart rate remains in the 50s to 60s. I recent review of the records shows that he has had this arrhythmia in the past. At this time I think patient is stable for discharge. We will repeat the troponin and then if that is negative we will let him go. - Vital Signs Vital signs: Temp Pulse Resp BP Pulse Ox 97.4 F 101 H 17 149/91 H 100 10/30/18 19:00 10/30/18 14:02 10/30/18 19:00 10/30/18 18:09 10/30/18 19:00 - Laboratory Result Diagrams: 10/30/18 15:30 10/30/18 15:30 Laboratory results interpreted by me: 10/30/18 10/30/18 10/30/18 15:30 15:30 15:30 WBC 12.9 H RDW 15.3 H Absolute Neutrophils 8.7 H PT 15.7 H ALT 15 L Creatine Kinase 223 H - EKG Interpretation by Me EKG shows normal: Intervals, QRS Complexes, ST-T Waves Rate: Bradycardia Rhythm: PVC's Bellona/QRS: Left axis deviation Voltage: Consistant with LVH Discharge - Discharge Clinical Impression: Hypertension Qualifiers: Hypertension type: unspecified Qualified Code(s): I10 - Essential (primary) hypertension Condition: Good Disposition: HOME, SELF-CARE Instructions: High Blood Pressure, Requiring Treatment ([facility]) Additional Instructions: Please follow-up with Dr. Lozada tomorrow or Sunday. Take the medication as instructed. Return if you develop chest pain or any worsening symptoms. Prescriptions: Hydralazine HCl [Apresoline 25 mg Tablet] 25 mg PO BID 30 Days #60 tablet Forms: Return to Work Referrals: ROMULO LOZADA MD [Primary Care Provider] - Follow up tomorrow
[2018-10-30] MEDS ORDERED: HYDRALAZINE HCL 25 MG TABLET PO ONE (16:51)
[2018-10-30 19:12] VITALS: BP 149/91
--- NOTE | 2018-10-31 09:34 | EKG REPORT ---
SEVERITY:- ABNORMAL ECG - SINUS RHYTHM VENTRICULAR TRIGEMINY LEFT ATRIAL ABNORMALITY LEFT VENTRICULAR HYPERTROPHY : Confirmed by: Promise Villarreal MD 30-Oct-2018 21:26:39
== END 2018-10-30 19:17 | disposition home or self-care (01) ==
LOC: ER 13:51
DX: I10 Essential (primary) hypertension (principal); I49.3 Ventricular premature depolarization; R00.2 Palpitations; I48.91 Unspecified atrial fibrillation; Z79.02 Long term (current) use of antithrombotics/antiplatelets; F17.210 Nicotine dependence, cigarettes, uncomplicated
CPT/HCPCS: 36415; 71045; 80053; 82550; 82553; 84484; 85025; 85379; 85610; 85730; 93005; 93010; 99284

== ENCOUNTER 2018-11-27 07:59 | Day surgery (SDC) | payer OTHER ==
[2018-11-20 11:19] LABS: HEMATOCRIT 40.3 % (37.9-51.0); HEMOGLOBIN 14.1 g/dL (13.5-17.0); MEAN CORPUSCULAR HEMOGLOBIN 28.7 pg (27.0-33.4); MEAN CORPUSCULAR HGB CONC 34.9 g/dL (32.0-36.0); MEAN CORPUSCULAR VOLUME 82 fl (80-97); PLATELET COUNT 167 10^3/uL (150-450); RED CELL DISTRIBUTION WIDTH 15.7 % (11.5-14.0); WHITE BLOOD COUNT 6.1 10^3/uL (4.0-10.5)
--- NOTE | 2018-11-20 17:31 | EKG REPORT ---
SEVERITY:- ABNORMAL ECG - SINUS RHYTHM VENTRICULAR TRIGEMINY PROBABLE LEFT ATRIAL ABNORMALITY : Confirmed by: Promise Villarreal MD 20-Nov-2018 17:30:25
[~2018-11-27 07:59] MED LIST changes: +ACETAMINOPHEN 325 MG TABLET PO PRN; -BUPIVACAINE HCL 0.5 % INJ/PF 30 ML SDV ONE; +CEFAZOLIN 1 GM/D5W RTU 1 GM/50 ML RTUPB IV ONE; +CEFAZOLIN 1 GM/D5W RTU 1 GM/50 ML RTUPB IV PRN; +LACTATED RINGERS 1000 ML IV PRN; +LIDOCAINE 0.5% INJ-PF (5 MG/ML) 50 ML SDV SUBCUT PRN; -LIDOCAINE 1% INJ-PF (10 MG/ML) 30 ML SDV ONE; -METHYLPREDNISOLONE ACETATE INJ 80 MG/1 ML VIAL ONE; +RINGERS SOLUTION,LACTATED 1,000 ML IV PRN
[2018-11-27 08:44] LABS: INTERNATIONAL RATION (INR) 1.07; PROTHROMBIN TIME 13.9 SEC (11.4-15.4)
[2018-11-27] MEDS ORDERED: BUPIVACAINE HCL 0.25 % INJ/PF (2.5 MG/1 ML) 30 ML VIAL ONE (08:45)
[2018-11-27] MEDS ORDERED: PROPOFOL INJ 200 MG/20 ML VIAL IV ONE (08:47)
[2018-11-27] MEDS ORDERED: MIDAZOLAM 2 MG/2 ML INJ ONE (08:47)
[2018-11-27] MEDS ORDERED: FENTANYL CITRATE INJ/PF 250 MCG/5 ML AMPULE ONE (08:47)
[2018-11-27] MEDS ORDERED: BUPIVACAINE HCL 0.25 % INJ/PF (2.5 MG/1 ML) 30 ML VIAL INJ ONE (09:20)
[2018-11-27] MEDS ORDERED: FENTANYL CITRATE INJ/PF 100 MCG/2 ML AMPUL IV PRN ×6 (09:25→11:40)
[2018-11-27] MEDS ORDERED: PROMETHAZINE HCL INJ 25 MG/1 ML VIAL IV PRN ×4 (09:25→11:40)
[2018-11-27] MEDS ORDERED: DIPHENHYDRAMINE HCL 50 MG/ML VIAL IV PRN ×2 (09:25→11:40)
[2018-11-27] MEDS ORDERED: OXYCODONE-ACETAMINOPHEN 5-325 MG TABLET PO PRN ×4 (09:25→11:40)
[2018-11-27] MEDS ORDERED: MEPERIDINE HCL/PF INJ 25 MG/1 ML DISP.SYRIN IV PRN ×2 (09:25→11:40)
[2018-11-27] MEDS ORDERED: BUPIVACAINE INJ/PF LIPOSOME/PF 266 MG/20 ML SDV ONE (09:26)
[2018-11-27] MEDS ORDERED: ONDANSETRON HCL INJ/PF 4 MG/2 ML SDV ONE (09:39)
[2018-11-27] MEDS ORDERED: PHENYLEPHRINE HCL INJ/PF 10 MG/1 ML SDV ONE (09:39)
[2018-11-27] MEDS ORDERED: KETOROLAC TROMETHAMINE 60 MG/2 ML SDV ONE (09:39)
[2018-11-27] MEDS ORDERED: GLYCOPYRROLATE 1 MG/5 ML VIAL ONE (09:39)
[2018-11-27] MEDS ORDERED: LIDOCAINE 2% INJ-PF (20 MG/ML) 2 ML AMPUL ONE (09:39)
[2018-11-27] MEDS ORDERED: ROCURONIUM BROMIDE INJ 50 MG/5 ML VIAL IV ONE (09:39)
[2018-11-27] MEDS ORDERED: SUCCINYLCHOLINE CHLORIDE INJ 200 MG/10 ML VIAL ONE (09:39)
[2018-11-27] MEDS ORDERED: DEXAMETHASONE SOD PHOSPHATE INJ 4 MG/1 ML VIAL ONE (09:39)
[2018-11-27] MEDS ORDERED: BUPIVACAINE INJ/PF LIPOSOME/PF 266 MG/20 ML SDV INJ ONE (10:17)
[2018-11-27] MEDS ORDERED: NALOXONE HCL INJ/PF 0.4 MG/1 ML SDV ONE (10:34)
--- NOTE | 2018-11-27 10:36 | Discharge Summary ---
Discharge Summary (SDC) - Discharge Final Diagnosis: Left inguinal hernia, indirect Date of Surgery: 11/27/18 Discharge Date: 11/27/18 Condition: Good Treatment or Instructions: Patient may shower; prescription for Toradol on chart; no heavy lifting pushing or excessive bending until seen in clinic; follow-up with [facility] in 1- 2 weeks Referrals: ROMULO LOZADA MD [Primary Care Provider] - Discharge Diet: As Tolerated Discharge Activity: No Lifting Over 10 Pounds, No Lifting/Push/Pulling Home Care Assistance: None Needed Report the Following to Your Physician Immediately: Shortness of Breath, Increase in Pain, Fever over 101 Degrees
--- NOTE | 2018-11-27 10:43 | Operative Report ---
Operative Report DATE OF SURGERY: 11/27/18 PREOPERATIVE DIAGNOSIS: Left inguinal hernia, indirect POSTOPERATIVE DIAGNOSIS: Same OPERATION: Left inguinal exploration, open, reduction of a left indirect inguinal hernia, and deployment of Ethicon large UHS prosthesis SURGEON: SAIGE TOLEDO ANESTHESIA: GA TISSUE REMOVED OR ALTERED: Portions of incarcerated fat COMPLICATIONS: None ESTIMATED BLOOD LOSS: Scant INTRAOPERATIVE FINDINGS: See below PROCEDURE: Patient was taken to the preop holding her with a left inguinal area was marked, then to the main operating room general anesthesia was induced. Hair in the inguinal area previously clipped, then prepped and draped in sterile fashion w ith Betadine Surgical plan and surgical timeout were conducted. Anatomic landmarks were identified, skin Radha times with a core percent Marcaine, and a 6 cm left inguinal incision was made with a #10 blade. Subcutaneous tissue, Chante's fascia divided as encountered with electrocautery. Deeper anesthesia applied with 1/4% Marcaine. The fatty tissue overlying the external oblique aponeurosis was opened, and the external oblique fibers divided with #10 blade. The ilioinguinal nerve was identified, and spared throughout the dissection. The contents of the inguinal canal were now analyzed, elevating the superior and inferior fascial flaps. A Ronda drain was easily looped around the cord structures, containing the hernia. The structures were elevated off of the medial floor of the inguinal canal which was grossly intact. It appeared that the hernia defect was indirect as we had the inferior epigastric vessels visualized in the field. We now interrogated the structures with a [place] drain. The hernia consisted of a large 2 x 5 cm lobulated, knuckled pedunculation of fat. The overlying hernia sac was intimately adhesed to the chronically inflamed fatty tissue. I debrided some of the fat and hernia sac and disposed of those components. This now enabled me to insinuated index finger into the peritoneal cavity and confirm the serrated tissue was thoroughly peritoneal contents. The pedunculated fat was likely coming off of the sigmoid colon. We did not deliver the sigmoid colon however into the field. I oversewed the proximal fatty pedicle. I now worked in a extraperitoneal plane, the retroperitoneal fat, from the transversalis tissue. I worked in a circumferential fashion, dividing some of the adhesions with electrocautery such that a pocket was now created, with the retroperitoneal tissue dropping away from the anterior abdominal wall. We now brought onto the field a large UHS Prolene hernia system, check for expiration date, and deployed the inner component into the cleared retroperitoneal pocket. Inner component was splayed out in a circumferential fashion. The external component was now trimmed to the appropriate configuration, with an upside down U cut at the 5 o'clock position to create the new deep internal ring. Using approximately 8-10 stitches, 0 PDS, the mesh was affixed to Poupart's ligament conjoined tendon respectively. The ilioinguinal nerve was preserved throughout this dissection. Of note the cord structures including all cord lipoma remained viable throughout the placement. At the conclusion, the new internal ring was not too tight, and we felt the mesh was seated satisfactorily. Tenia counts are correct. The external oblique aponeurosis was closed longer Vicryl suture, Chante's fascia and skin with 3-0 Vicryl suture and skin with Dermabond glue. 20 cc of full-strength Exparel ejected into the surrounding subcutaneous tissues. Patient tolerated procedure well, extubated, taken recovery in stable condition.
[2018-11-27] MEDS ORDERED: EPHEDRINE SULFATE INJ 50 MG/1 ML AMPULE ONE (10:48)
[2018-11-27] MEDS: FENTANYL CITRATE INJ/PF 100 MCG/2 ML AMPUL ONE ×2 (11:00→11:19)
[2018-11-27] MEDS ORDERED: OXYCODONE-ACETAMINOPHEN 5-325 MG TABLET ONE (11:55)
[2018-11-27 13:18] VITALS: BP 132/82
== END 2018-11-27 12:55 | disposition home or self-care (01) ==
LOC: OROUT 07:59
PROVIDERS: ATTEND Surgery
DX: K40.90 Unilateral inguinal hernia, without obstruction or gangrene, not specified as recurrent (principal); I10 Essential (primary) hypertension; I48.91 Unspecified atrial fibrillation; F17.210 Nicotine dependence, cigarettes, uncomplicated; Z79.01 Long term (current) use of anticoagulants
CPT/HCPCS: 93005; 36415 ×2; 85027; 85610; 85730; 93010; 00830; 49505; C1781; J2250; J0690; J3490 ×4; J1100; J1885; J3010 ×2; J2310; J2370; J0330; J2405; J2704; C9290; 830

== ENCOUNTER → 2019-06-02 | Outpatient (CLI) | payer OTHER ==
[2019-06-02 09:42] LABS: APPEARANCE,URINE CLEAR; BILIRUBIN,URINE NEGATIVE (NEGATIVE); COLOR,URINE YELLOW; GLUCOSE, URINE NEGATIVE (NEGATIVE); KETONES,URINE NEGATIVE (NEGATIVE); LEUKOCYTE ESTERASE,URINE NEGATIVE (NEGATIVE); NITRITE,URINE NEGATIVE (NEGATIVE); PROTEIN,URINE NEGATIVE (NEGATIVE); URINE SPECIFIC GRAVITY 1.026; UROBILINOGEN,URINE NEGATIVE mg/dL (<2.0)
[2019-06-02 10:00] LABS: ABSOLUTE EOSINOPHILS # (AUTO) 0.2 10^3/uL (0.0-0.6); ABSOLUTE LYMPHOCYTES (AUTO) 2.3 10^3/uL (0.5-4.7); ABSOLUTE MONOCYTES (AUTO) 0.4 10^3/uL (0.1-1.4); ABSOLUTE NEUT (AUTO) 2.8 10^3/uL (1.7-8.2); BASOPHILS % (AUTO) 0.7 % (0-2); EOSINOPHILS % (AUTO) 2.8 % (0-6); HEMATOCRIT 39.6 % (37.9-51.0); HEMOGLOBIN 14.4 g/dL (13.5-17.0); LYMPHOCYTES % (AUTO) 39.9 % (13-45); MEAN CORPUSCULAR HEMOGLOBIN 29.5 pg (27.0-33.4); MEAN CORPUSCULAR HGB CONC 36.4 g/dL (32.0-36.0); MEAN CORPUSCULAR VOLUME 81 fl (80-97); MONOCYTES % (AUTO) 7.4 % (3-13); PLATELET COUNT 215 10^3/uL (150-450); RED BLOOD COUNT 4.88 10^6/uL (4.35-5.55); RED CELL DISTRIBUTION WIDTH 15.5 % (11.5-14.0); SEGMENTED NEUTROPHILS % (AUTO) 49.2 % (42-78); TOTAL CELLS COUNTED % (AUTO) 100 %; WHITE BLOOD COUNT 5.7 10^3/uL (4.0-10.5)
[2019-06-02 10:05] LABS: ALKALINE PHOSPHATASE 109 U/L (38-126); ANION GAP 7 (5-19); ASPARTATE AMINO TRANSFERASE 23 U/L (17-59); BILIRUBIN,TOTAL 0.3 mg/dL (0.2-1.3); BLOOD UREA NITROGEN 12 mg/dL (7-20); CALCIUM 9.1 mg/dL (8.4-10.2); CARBON DIOXIDE 26 mmol/L (22-30); CHLORIDE 108 mmol/L (98-107); CHOLESTEROL 148.51 mg/dL (0-200); GLUCOSE 110 mg/dL (75-110); POTASSIUM 4.1 mmol/L (3.6-5.0); TOTAL PROTEIN 7.2 g/dL (6.3-8.2); TRIGLYCERIDES 48 mg/dL (<150); URIC ACID 7.1 mg/dL (3.5-8.5)
[2019-06-02 10:16] LABS: DIRECT LDL 96 mg/dL (<100); FREE T4 (FREE THYROXINE) 0.8 ng/dL (0.78-2.19)
[2019-06-02 10:30] LABS: THYROID STIMULATING HORMONE 0.74 uIU/mL (0.47-4.68)
== END ==
LOC: OD 08:33
PROVIDERS: ATTEND Internal Medicine
DX: I10 Essential (primary) hypertension (principal); Z12.5 Encounter for screening for malignant neoplasm of prostate
CPT/HCPCS: 36415; 80053; 80061; 81001; 82043; 82570; 84154; 84439; 84443; 84550; 85025

== ENCOUNTER → 2020-01-19 | Outpatient (CLI) | payer OTHER ==
--- NOTE | 2020-01-19 15:12 | RADIOLOGY REPORT (SQ) ---
EXAM DESCRIPTION: MRI ABDOMEN COMBO IMAGES COMPLETED DATE/TIME: 01/19/2020 10:03 am REASON FOR STUDY: K76.9 LIVER DISEASE, UNSPECIFIED K76.9 LIVER DISEASE, UNSPECIFIED COMPARISON: MRI 11/05/2016. CT 01/28/2018. TECHNIQUE: Multiplanar multisequence imaging performed without and with contrast including sagittal, axial and coronal T2, axial T1, axial gradient fat sat T1, axial, sagittal and coronal fat sat T1 po st contrast. CONTRAST TYPE AND DOSE: 20 mL Prohance. RENAL FUNCTION: Not indicated. ACR Type II contrast agent associated with few, if any, unconfounded cases of NSF LIMITATIONS: Motion artifact. FINDINGS: LIVER: Normal size. No masses. No dilated ducts. CBD normal. SPLEEN: Normal size. No focal lesions. PANCREAS: No masses. No adjacent inflammation or peripancreatic fluid collections. Pancreatic duct no t dilated. GALLBLADDER: No masses. No stones. No gallbladder wall thickening or pericholecystic fluid. ADRENAL GLANDS: No significant masses or asymmetry. RIGHT KIDNEY AND URETER: Stable solid mass lower pole measuring 2.1 x 2.3 cm AP by transverse diamete r. Stable small anterior midpole cyst. LEFT KIDNEY AND URETER: No masses. No hydronephrosis. AORTA AND VESSELS: No aneurysm. No dissection. Renal arteries, SMA, celiac without stenosis. RETROPERITONEUM: No retroperitoneal adenopathy, hemorrhage or masses. BOWEL: No visualized masses. No inflammation. No significant dilatation. ABDOMINAL WALL AND PERITONEUM: No hernias. No free fluid. BONES: No acute or significant findings. OTHER: No other significant finding. IMPRESSION: Stable solid lesion lower pole right kidney. TECHNICAL DOCUMENTATION: JOB ID: [id number] 2010 [employer]- All Rights Reserved Reading location - IP/workstation name: [email or web address]
== END ==
LOC: RAD 08:54
PROVIDERS: ATTEND Nurse Practitioner
DX: N28.89 Other specified disorders of kidney and ureter (principal); K76.9 Liver disease, unspecified
CPT/HCPCS: 82565; 74183; A9576

== ENCOUNTER → 2020-04-19 | Outpatient (CLI) | payer OTHER ==
--- NOTE | 2020-04-19 16:57 | RADIOLOGY REPORT (SQ) ---
EXAM DESCRIPTION: CTA CHEST IMAGES COMPLETED DATE/TIME: 04/19/2020 4:27 pm REASON FOR STUDY: (R09.1)PLEURISY (pt coming back 04/20) R09.1 PLEURISY COMPARISON: 06/01/2018 TECHNIQUE: CT scan of the chest performed using helical scanning technique with dynamic intravenous contrast injection. Images reviewed with lung, soft tissue and bone windows. Reconstructed coronal and sagittal MPR images reviewed. Additional 3 dimensional post-processing performed to develop Maximal Intensity Projection images ([place] P). All images stored on PACS. All CT scanners at this facility use dose modulation, iterative reconstruction, and/or weight based d osing when appropriate to reduce radiation dose to as low as reasonably achievable (ALARA). [facility]: Dose Right [facility]: CareDose [facility]: Dose Right [facility]: Teradose 4D [facility]: C[employer] CONTRAST TYPE AND DOSE: contrast/concentration: Isovue 350.00 mmol/ml; Total Contrast Delivered: 75. 0 ml; Total Saline Delivered: 80.0 ml. A 2nd study was informed. This patient received 75 mL of Isov ue 350. Contrast bolus optimized for the pulmonary arteries. Not diagnostic for the aorta. RENAL FUNCTION: Creatinine 1.0 RADIATION DOSE: CT Rad equipment meets quality standard of care and radiation dose reduction techniq ues were employed. CTDIvol: 14.7 - 16.9 mGy. DLP: 632 mGy-cm. . LIMITATIONS: None. FINDINGS: LUNGS AND PLEURA: Right basilar atelectasis. No focal consolidation. No suspicious pulmo nary nodules. AORTA AND GREAT VESSELS: No aneurysm. Contrast bolus not optimized for the aorta. HEART: No pericardial effusion. No significant coronary artery calcifications. PULMONARY ARTERIES: No emboli visualized in the main pulmonary arteries or the segmental branches. HILAR AND MEDIASTINAL STRUCTURES: No identified masses or abnormal nodes. HARDWARE: None in the chest. UPPER ABDOMEN: No significant findings. Limited exam. THYROID AND OTHER SOFT TISSUES: No masses. No adenopathy. BONES: No acute or significant finding. 3D MIPS: Confirm above findings. OTHER: No other significant finding. IMPRESSION: Bibasilar atelectasis left greater than right. No pulmonary emboli. COMMENT: Quality ID # [id number]: Final reports with documentation of one or more dose reduction techniques (e.g., Automated exposure control, adjustment of the mA and/or kV according to patient size, use of iterative reconstruction technique) TECHNICAL DOCUMENTATION: JOB ID: [id number] 2010 [employer]- All Rights Reserved Reading location - IP/workstation name: [email or web address]
== END ==
LOC: RAD 13:24
PROVIDERS: ATTEND Internal Medicine
DX: R09.1 Pleurisy (principal)
CPT/HCPCS: 71275; 82565